=== PATIENT | female | born 1960 | race Caucasian/White ===

== ENCOUNTER → 2018-04-07 08:52 | Outpatient (CLI) | payer OTHER, SELFPAY ==
--- NOTE | 2018-04-07 08:54 | DI.RAD.S_ITS ---
PROCEDURE: XR THORACIC SPINE 3V INDICATIONS: BACK PAIN, ACUTE THORACIC BACK PAIN TECHNIQUE: 3 views of the thoracic spine were acquired. COMPARISON: None. FINDINGS: Bones: No fractures or dislocations. No suspicious bony lesions. 12 pairs of ribs are noted, and appear intact where visualized. Soft tissues: No paravertebral stripe thickening. IMPRESSION: Mild to moderate degenerative disc disease but no fracture or subluxation is found. No spinal or foraminal dose this would be suspected based on the current imaging through the thoracic spine. Dictated by: John Donaldson M.D. on 04/07/2018 at 9:10 Approved by: John Donaldson M.D. on 04/07/2018 at 9:12
== END ==
PROVIDERS: Family Provider Internal Medicine; PCP Internal Medicine; Visit Provider Physician Assistant
DX: M51.34 Other intervertebral disc degeneration, thoracic region (principal)
CPT/HCPCS: 72072

== ENCOUNTER → 2018-04-21 08:16 | Outpatient (CLI) | payer OTHER, SELFPAY ==
--- NOTE | 2018-04-21 | DI.MRI.S_ITS ---
PROCEDURE: MR CERVICAL SPINE WO CON INDICATIONS: CERVICAL PAIN TECHNIQUE: Noncontrast sagittal T1 spin echo and T2 fast spin echo, sagittal STIR, foraminal oblique sagittal T2 fast spin echo, and axial gradient echo or T2 fast spin echo through the cervical spine. COMPARISON: [facility], CR, XR CERVICAL SPINE 2 OR 3 VIEWS, 03/17/2018, 8:29. [facility], MR, C-SPINE WITHOUT CONTRAST, 05/13/2008, 19:37. FINDINGS: Image quality: Excellent. Alignment and Curvature: There is normal bony alignment. Bone Marrow: Marrow demonstrates normal overall signal. Spinal Cord: Visualized spinal cord has normal size and signal. No cerebellar tonsillar herniation. Paraspinous Soft Tissues: No paravertebral masses. Prevertebral soft tissues are normal in thickness. C2-C3: Mild degenerative disc disease with slight disc height reduction and desiccation and a slight posterior disc bulge without spinal or foraminal stenosis, stable over time. C3-C4: Minimal degenerative disc height reduction and desiccation, small posterior midline disc bulge that does not contribute presence of spinal or foraminal stenosis. C4-C5: The degenerative disc disease at this level is moderate to moderately severe, with relatively prominent disc height reduction and broad based transverse disc bulge chronic in appearance, which mildly narrows the anterior thecal sac and slightly flattens the anterior cord. Facet degeneration is greater on the left than the right resulting in mild left and minimal right foraminal stenosis and mild spinal stenosis is also present, with mild interval worsening from 05/13/08. C5-C6: Degenerative disc disease is moderate to moderately severe, and there is a posterior transverse broad-based disc bulge the effaces CSF from the anterior thecal sac and slightly flattens the anterior cord, and there is symmetric mild to moderate foraminal stenosis due to facet hyperostosis. Minimal spinal stenosis as noted. C6-C7: Moderately severe degenerative disc disease with a posterior broad-based transverse disc bulge that is greater on the left than the right and extends into the posterolateral recess and neural foramen resulting in moderately severe to severe left and moderate right foraminal stenosis, likely asymmetrically impinging on the course of the C7 nerve roots. C7-T1: Normal appearance. IMPRESSION: Overall the degenerative disc disease and facet osteoarthritis has only mildly worsened from the comparison study in May of 2008. No disc herniation has developed. There is significant foraminal stenosis, both symmetric and asymmetric, as discussed in detail by level in the body of the report above. Mild spinal stenosis is present, as noted, but only minimally effacing the anterior border of the thecal sac and flattening the anterior cervical cord to a minimal degree from C4-5 through C6-7. Dictated by: John Donaldson M.D. on 04/21/2018 at 11:22 Approved by: John Donaldson M.D. on 04/21/2018 at 11:29
== END ==
PROVIDERS: Family Provider Internal Medicine; PCP Internal Medicine; Visit Provider Orthopaedic Surgery
DX: M54.2 Cervicalgia (principal); M50.30 Other cervical disc degeneration, unspecified cervical region; M48.02 Spinal stenosis, cervical region
CPT/HCPCS: 72141

== ENCOUNTER → 2018-05-08 07:35 | Outpatient (CLI) | payer OTHER, SELFPAY ==
[2018-05-08 07:54] LABS: Add Manual Diff / Slide Review NO; Basophils Percent Auto 1.1 % (0-2); Hematocrit 41.6 % (36-46); Hemoglobin 14.4 g/dL (12.0-16.0); Lymphocytes Percent Auto 23.6 % (25-40); Mean Corpuscular HGB Conc 34.6 % (30-36); Mean Corpuscular Hemoglobin 34.5 PG (26-34); Mean Corpuscular Volume 99.9 fL (80-100); Monocytes Percent Auto 7.6 % (3-14); Neutrophils Absolute Auto 3100 /uL (3000-5900); Neutrophils Percent Auto 66.7 % (50-75); Platelet Count 206 X10^3/uL (150-400); Red Blood Cell Count 4.17 X10^6/uL (4.0-5.2); White Blood Cell Count 4.7 X10^3/uL (4.5-11.0)
[2018-05-08 08:11] LABS: Alanine Aminotransferase 40 IU/L (9-52); Albumin 4.4 g/dL (3.5-5.0); Albumin Globulin Ratio 1.4 (1.0-2.8); Alkaline Phosphatase 100 U/L (38-126); Aspartate Aminotransferase 45 IU/L (14-36); Bilirubin Total 0.5 mg/dL (0.2-1.3); Blood Urea Nitrogen 7 mg/dL (7-17); Calcium 9.6 mg/dL (8.4-10.2); Carbon Dioxide 26 mmol/L (22-32); Chloride 100 mmol/L (98-107); Cholesterol 321 mg/dL (140-199); Estimated Glomerular Filt Rate > 60.0 mL/min (>60); Globulin 3.1 g/dL (1.7-4.1); Glucose 81 mg/dL (70-100); HDL Cholesterol 68 mg/dL (40-60); HEMOLYSIS < 15 (0-50); LDL Cholesterol Calculated 194 mg/dL (<100); Potassium 4.1 mmol/L (3.4-5.1); Sodium 137 mmol/L (137-145); Total Protein 7.5 g/dL (6.3-8.2); Triglycerides 293 mg/dL (35-150)
[2018-05-08 09:28] LABS: Thyroid Stimulating Hormone 2.09 uIU/mL (0.47-4.68)
== END ==
PROVIDERS: PCP Physician Assistant; Visit Provider Physician Assistant
DX: E78.5 Hyperlipidemia, unspecified (principal); E03.9 Hypothyroidism, unspecified; R03.0 Elevated blood-pressure reading, without diagnosis of hypertension
CPT/HCPCS: 36415; 80053; 80061; 84443; 85025

== ENCOUNTER → 2018-08-14 07:30 | Outpatient (CLI) | payer OTHER, SELFPAY ==
[2018-08-14 09:08] LABS: Alanine Aminotransferase 36 IU/L (9-52); Albumin 4.5 g/dL (3.5-5.0); Albumin Globulin Ratio 1.6 (1.0-2.8); Alkaline Phosphatase 84 U/L (38-126); Aspartate Aminotransferase 45 IU/L (14-36); Bilirubin Total 0.6 mg/dL (0.2-1.3); Blood Urea Nitrogen 9 mg/dL (7-17); Calcium 9.6 mg/dL (8.4-10.2); Carbon Dioxide 31 mmol/L (22-32); Chloride 98 mmol/L (98-107); Cholesterol 274 mg/dL (140-199); Estimated Glomerular Filt Rate > 60.0 mL/min (>60); Globulin 2.9 g/dL (1.7-4.1); Glucose 82 mg/dL (80-110); HDL Cholesterol 78 mg/dL (40-60); HEMOLYSIS < 15 (0-50); LDL Cholesterol Calculated 162 mg/dL (<100); Potassium 3.8 mmol/L (3.4-5.1); Sodium 139 mmol/L (137-145); Total Protein 7.4 g/dL (6.3-8.2); Triglycerides 168 mg/dL (35-150)
== END ==
PROVIDERS: Family Provider Internal Medicine; PCP Physician Assistant; Visit Provider Physician Assistant
DX: I10 Essential (primary) hypertension (principal); E78.2 Mixed hyperlipidemia
CPT/HCPCS: 36415; 80053; 80061

== ENCOUNTER → 2019-05-26 07:53 | Outpatient (CLI) | payer OTHER, SELFPAY ==
--- NOTE | 2019-05-26 | DI.MRI.S_ITS ---
PROCEDURE: MR THORACIC SPINE WO CON INDICATIONS: PAIN IN THORACIC SPINE TECHNIQUE: Noncontrast sagittal T1 spine echo and T2 fast spin echo, sagittal STIR, axial T1 and T2 fast spin echo through the thoracic spine. COMPARISON: [facility], , MR CERVICAL SPINE WO CON, 04/21/2018, 8:46. FINDINGS: Image quality: Excellent. Alignment and Curvature: There is grade I T1 on T2 anterolisthesis and T3 on T4 anterolisthesis. Spinal alignment is otherwise normal.. Bone Marrow: Marrow is of normal overall signal. Reactive endplate changes are present at C5-6. No acute vertebral body compression fractures. Spinal Cord: Visualized spinal cord is normal in size and signal. Paraspinous Soft Tissues: No paravertebral masses. Miscellaneous: On axial images, central canal and foramina appear widely patent at all scanned levels. Mild intervertebral disc space narrowing is present within the upper thoracic spine at T1-T7. IMPRESSION: 1. Mild to moderate degenerative changes of the upper thoracic spine. 2. No canal stenosis or neuroforaminal stenosis. No cord signal abnormality. Dictated by: Jeanne Kumar M.D. on 05/26/2019 at 8:40 Approved by: Jeanne Kumar M.D. on 05/26/2019 at 8:44
== END ==
PROVIDERS: PCP Physician Assistant; Visit Provider Physician Assistant
DX: M54.6 Pain in thoracic spine (principal); M47.814 Spondylosis without myelopathy or radiculopathy, thoracic region
CPT/HCPCS: 72146

== ENCOUNTER → 2019-05-28 07:57 | Outpatient (CLI) | payer OTHER, SELFPAY ==
[2019-05-28 08:30] LABS: Add Manual Diff / Slide Review NO; Basophils Absolute Auto 100 /uL (0-100); Basophils Percent Auto 1.2 % (0-2); Eosinophils Absolute Auto 0 /uL (0-450); Eosinophils Percent Auto 0.9 % (2-4); Hematocrit 42.9 % (36-46); Hemoglobin 14.8 g/dL (12.0-16.0); Lymphocytes Absolute Auto 1100 /uL (1100-4500); Lymphocytes Percent Auto 24.5 % (25-40); Mean Corpuscular HGB Conc 34.6 % (30-36); Mean Corpuscular Hemoglobin 35.2 PG (26-34); Mean Corpuscular Volume 101.6 fL (80-100); Monocytes Absolute Auto 400 /uL (0-900); Monocytes Percent Auto 8.8 % (3-14); Neutrophils Absolute Auto 2800 /uL (1500-7000); Neutrophils Percent Auto 64.6 % (50-75); Platelet Count 233 X10^3/uL (150-400); Red Blood Cell Count 4.22 X10^6/uL (4.0-5.2); Red Cell Distribution Width 13.1 % (11.6-14.8); White Blood Cell Count 4.3 X10^3/uL (4.5-11.0)
[2019-05-28 09:02] LABS: Alanine Aminotransferase 38 IU/L (9-52); Albumin 4.7 g/dL (3.5-5.0); Albumin Globulin Ratio 1.7 (1.0-2.8); Alkaline Phosphatase 98 U/L (38-126); Aspartate Aminotransferase 38 IU/L (14-36); BUN Creatinine Ratio 11.7 (6-22); Bilirubin Total 0.7 mg/dL (0.2-1.3); Blood Urea Nitrogen 7 mg/dL (7-17); Calcium 10.3 mg/dL (8.4-10.2); Carbon Dioxide 28 mmol/L (22-32); Chloride 97 mmol/L (98-107); Cholesterol 259 mg/dL (140-199); Estimated Glomerular Filt Rate > 60.0 mL/min (>60); Globulin 2.8 g/dL (1.7-4.1); Glucose 81 mg/dL (80-110); HDL Cholesterol 96 mg/dL (40-60); HEMOLYSIS < 15 (0-50); LDL Cholesterol Calculated 143 mg/dL (<100); Potassium 4.3 mmol/L (3.4-5.1); Rheumatoid Factor 9.6 IU/mL (<12.0); Sodium 136 mmol/L (137-145); Total Protein 7.5 g/dL (6.3-8.2); Triglycerides 99 mg/dL (35-150)
[2019-05-28 09:04] LABS: Erythrocyte Sedimentation Rate 10 MM/HR (0-20)
[2019-05-28 09:10] LABS: C-Reactive Protein Quant < 0.5 mg/dL (<1.0)
[2019-05-30 19:27] LABS: ANA Screen, IFA Negative (Negative)
== END ==
PROVIDERS: PCP Physician Assistant; Visit Provider Physician Assistant
DX: M54.6 Pain in thoracic spine (principal); E78.5 Hyperlipidemia, unspecified; E03.9 Hypothyroidism, unspecified; R03.0 Elevated blood-pressure reading, without diagnosis of hypertension
CPT/HCPCS: 36415; 80053; 80061; 84443; 85025; 85651; 86038; 86140; 86430

== ENCOUNTER → 2019-06-03 08:09 | Outpatient (CLI) | payer OTHER, SELFPAY ==
[2019-06-03 09:23] LABS: BUN Creatinine Ratio 13.3 (6-22); Blood Urea Nitrogen 8 mg/dL (7-17); Calcium 10.2 mg/dL (8.4-10.2); Carbon Dioxide 28 mmol/L (22-32); Chloride 95 mmol/L (98-107); Estimated Glomerular Filt Rate > 60.0 mL/min (>60); Glucose 85 mg/dL (80-110); HEMOLYSIS < 15 (0-50); Potassium 4.3 mmol/L (3.4-5.1); Sodium 134 mmol/L (137-145)
[2019-06-05 14:27] LABS: Parathyroid Hormone Int 37 pg/mL (14-64)
== END ==
PROVIDERS: PCP Physician Assistant; Visit Provider Physician Assistant
DX: E83.52 Hypercalcemia (principal)
CPT/HCPCS: 36415; 80048; 83970

== ENCOUNTER 2019-08-12 07:29 | Outpatient (CLI) | payer OTHER, SELFPAY ==
--- NOTE | 2019-08-12 07:31 | DI.RAD.S_ITS ---
PROCEDURE: PAIN C/T INTERLAMINAR INJECT INDICATIONS: RADICULOPATHY FINDINGS: Fluoroscopic spot filming was performed to verify placement of spinal needles at the C6-C7 posterior midline level(s), as labeled on the films. Appropriate location(s) of the needle tip(s) was confirmed by injection of iodinated contrast. IMPRESSION: Epidural injection at C6-7 at the dorsal midline appears present, expected needle tip localization. Dictated by: John Donaldson M.D. on 08/12/2019 at 13:24 Approved by: John Donaldson M.D. on 08/12/2019 at 13:25
[2019-08-12 07:49] VITALS: BP 163/95; PULSE 83; RESP 16; TEMP 36.5; O2SAT 100
[2019-08-12 08:26] VITALS: BP 162/97; PULSE 86; RESP 15; O2SAT 99
[2019-08-12] MEDS: fentaNYL 100 MCG/2 ML INJ 50 MCG IV (08:29)
[2019-08-12] MEDS: MIDAZOLAM 5 MG/5 ML VIAL IV (08:29)
[2019-08-12] MEDS: DEXAMETHASONE 10 MG/ML VIAL 30 MG INJ (08:40)
[2019-08-12] MEDS: LIDOCAINE 1% 20 ML 5 ML INJ (08:40)
[2019-08-12] MEDS: IOPAMIDOL 15 ML VIAL 3 ML INJ (08:40)
--- NOTE | 2019-08-12 08:45 | P.PCN_ITS ---
Procedures Date/Time Date of procedure: 08/12/19 Time of procedure: 08:45 General Procedure description: PREOP DIAGNOSIS 1. CERVICAL STENOSIS, 2. CERVICAL HNP WITH UPPER EXTREMITY RADICULAR FEATURES, POST OP DIAGNOSIS 1. CERVICAL STENOSIS, 2. CERVICAL HNP WITH UPPER EXTREMITY RADICULAR FEATURES, PROCEDURES 1. FLUORSCOPICALLY GUIDED CONTRAST CONTROLLED INTERLAMINAR EPIDURAL STEROID INJECTION - C6/7 TL TERRI PHYSICIAN: Martin Pérez DO INDICATIONS Tressa is referred by [facility] for treatment of Cervical HNP with Upper Extremity Paresthesias. FINDINGS Cervical Stenosis due to disc deterioration and nerve root irritation and nerve root irritation DESCRIPTION OF PROCEDURE Fluoroscopically guided, contrast-controlled C6/7 translaminar epidural steroid injection with conscious sedation. Following review of allergy and review of potential side effects and complications, including, but not necessarily limited to, infection, allergic reaction, local tissue breakdown, temporary as well as permanent nerve injury, stroke, paralysis, and possible , the patient indicated that patient understood and agreed to proceed. An informed consent document was signed by the patient, witnessed by a nurse, and placed in the patient's chart. Additionally, other treatment options including modalities, medications, and physical therapy were reviewed with the patient. After review of previous anaesthesic history and IV conscious sedation the patient was deemed safe to proceed with todays procedure with IV conscious sedation as ASA class II designation. Safety time-out was performed to confirm patient ID, procedure to be performed and site of procedure. IV sedation was accomplished with a combination of 2mg of Versed and 50mcg of Fentanyl administered by the RN after DO order, titrated to patient comfort during the course of the procedure while the patient remained responsive to all verbal commands. In the prone position, following sterile prep and drape of the cervical region, the C6/7 translaminar space was identified fluoroscopically. The skin was anesthetized via a 25-gauge 1.5-inch needle with 1% lidocaine solution. At this point, a 25-gauge, 2.5-inch short bevel spinal needle was atraumatically i ntroduced and advanced under fluoroscopic guidance into epidural space at the C6/7 translaminar space. Depth was confirmed on lateral view. Radiological data, including multiple fluoroscopic views of the cervical spine, reveal a spinal needle at the C6/7 translaminar space. Lateral views then show placement of the needle in the epidural space. Subsequent views show contrast material flowing superiorly and inferiorly in the epidural space. DSA fluoroscopy with live contrast injection, once again, confirmed no vascular or intrathecal uptake. At this point, using loss of resistance technique with saline and air, the epidural space was entered. Following negative aspiration, injection of approximately 1.5 cc of Isovue-200 with live fluoroscopy in the AP view confirmed epidural flow in the epidural space without vascular or intrathecal uptake observed. Subsequently, a test dose of 1 cc of 1% lidocaine solution was injected and patient was observed for two minutes without signs or symptoms of complications, including abdominal pain, shortness of breath, bilateral upper or lower extremity weakness, nausea and vomiting, prior to steroid injection. At this point, 2cc or 20mg of dexamethasone was then injected without incident. The patient tolerated the procedure well without signs or symptoms of complications prior to being transferred to the recovery area for further jerome toring, The patient was then transferred to the recovery area where they were observed for an appropriate period of time after the injection. The patient reported a VAS score of 6 prior to the procedure and a post-procedure VAS of 0. Total Fluoroscopy Time: 37.0 seconds Total Conscious Time: 24min POST OP INSTRUCTIONS The patient was provided a Pain Log to continue to record their response to the target-specific procedure prior to follow-up visit with the referring provider. Additionally, specific post-injection care instructions and a contact number to our office were provided if concerns arise regarding possible complications associated with the procedure are suspected. Martin Pérez DO Complications: none
[2019-08-12 08:50] VITALS: BP 148/92; PULSE 84; RESP 16; O2SAT 100
--- NOTE | 2019-08-12 08:53 | PC.NURSE ---
post transfer note: VSS throughout procedure. O2 sat WNL on 2 L/[employer]. Pai8n level 11/12 post procedure. Denied any numbness or tingling. Transfered to / without difficulties. Transported to post procedure monitoring. Report given to Belinda Allred RN. Friend at chairside.
[2019-08-12 08:54] VITALS: BP 136/94; PULSE 82; RESP 16; O2SAT 99
[2019-08-12 08:59] VITALS: BP 148/83; PULSE 81; RESP 16; O2SAT 99
== END 2019-08-12 09:15 | disposition home or self-care (01) ==
LOC: RAD 07:31
PROVIDERS: PCP Physician Assistant; Visit Provider Physical Medicine & Rehabilitation
DX: M48.02 Spinal stenosis, cervical region (principal); M50.123 Cervical disc disorder at C6-C7 level with radiculopathy; R20.2 Paresthesia of skin
CPT/HCPCS: 62321; 99152; J1100; J2250; J3010

== ENCOUNTER 2019-10-07 07:33 | Outpatient (CLI) | payer OTHER, SELFPAY ==
[2019-10-07] VITALS (8 sets, daily range): BP systolic 133–175; BP diastolic 71–118; PULSE 76–89; RESP 14–16; O2SAT 99–100
--- NOTE | 2019-10-07 07:34 | DI.RAD.S_ITS ---
PROCEDURE: PAIN C/T INTERLAMINAR INJECT INDICATIONS: THORACIC PAIN FINDINGS: Fluoroscopic spot filming was performed to verify placement of spinal needles at the mid thoracic level at approximately the junction of the upper and middle thirds level(s), as labeled on the films. Appropriate location(s) of the needle tip(s) was confirmed by injection of iodinated contrast. IMPRESSION: Successful needle tip localization at approximately the junction of the upper and middle thirds of the thoracic spine for dorsal epidural steroid injection. Dictated by: John Donaldson M.D. on 10/07/2019 at 10:21 Approved by: John Donaldson M.D. on 10/07/2019 at 10:38
[2019-10-07] MEDS: fentaNYL 100 MCG/2 ML INJ 50 MCG IV (08:40)
[2019-10-07] MEDS: MIDAZOLAM 5 MG/5 ML VIAL IV (08:40)
--- NOTE | 2019-10-07 08:55 | P.PCN_ITS ---
Procedures Date/Time Date of procedure: 10/07/19 Time of procedure: 08:55 General Procedure description: Preop diagnosis: Thoracic stenosis with HNP Postprocedure diagnosis: Thoracic stenosis with HNP Physician: Martin Pérez D.O. Indications: Tressa is referred by [facility] for treatment of thoracic DDD/DJD with radiculopathy Description of procedure: Fluoroscopic guided, contrast controlled T3/4 translaminar epidural steroid in jection with conscious sedation. Following review of allergy review potential side effects and complications, including, but not necessarily limited to, infection, allergic reaction, local tissue breakdown, temporary as well as permanent nerve injury, stroke, paralysis and possible , the patient indicated that they understood and agreed to proceed. An informed consent document was signed by the patient, witnessed by the nurse, and placed in the patient's chart. Additionally other treatment options including modalities, medications and physical therapy were reviewed with the patient. After review of previous anaesthesic history and IV conscious sedation the patient was deemed safe to proceed with todays procedure with IV conscious sedation as ASA class II designation. Safety time-out was performed to confirm patient ID, procedure to be performed and site of procedure. IV sedation was accomplished with a combination of 3mg of Versed and 50mcg of Fentanyl administered by the RN after DO order, titrated to patient comfort during the course of the procedure while the patient remained responsive to all verbal commands In the prone position, following sterile prep and drape of the thoracic region the T3/4 translaminar space was identified fluoroscopically. The skin was anesthetized via 25 gauge 20 mm sheath with 1% lidocaine solution. At this point a 20 gauge epidural needle was atraumatically introduced and advanced under fluoroscopic guidance into the region of the T3/4 translaminar space depth was confirmed on lateral view. Radiographic data, including multiple fluoroscopic views of the thoracic spine, reveals spinal needle at the T8-9 translaminar space. Lateral views then showed the placement of the needle in the epidural space. Subsequent view show contras t material flowing superiorly and inferiorly in the epidural space. No vascular or intrathecal uptake is observed. At this point using loss of resistance technique with saline and the epidural space was entered. This was confirmed followed negative aspiration and injection of approximately 1.5 cc of Isovue 200 showed excellent epidural flow without vascular or intrathecal uptake. At this point, 1 cc of 1% lidocaine solution was admitted as a test dose and the patient was observed for an appropriate period of time without signs or symptoms of complications, including abdominal pain, shortness of breath, bilateral upper and lower extremity weakness, nausea and vomiting, prior to steroid injection. Subsequently, 3cc or 30mg of dexamethasone was then injected without incident. The patient tolerated the procedure well without signs of complications and subsequently was transferred to the recovery room for further monitoring. The patient was then transferred to the recovery area with their observed for an appropriate time after the injection. Patient reported a VAS score of 7 prior to the procedure and postprocedure VAS of 2. Total fluoroscopy time: 56.3 sec Total conscious sedation time: 24 min Martin Pérez D.O. Complications: none
[2019-10-07] MEDS: IOPAMIDOL 15 ML VIAL 3 ML INJ (09:02)
[2019-10-07] MEDS: LIDOCAINE 1% 20 ML 5 ML INJ (09:02)
[2019-10-07] MEDS: DEXAMETHASONE 10 MG/ML VIAL 30 MG INJ (09:02)
--- NOTE | 2019-10-07 09:08 | PC.NURSE ---
Post procedure transfer note: Time out at 0837. Patient medicated per providers orders. Patient tolerated procedure well. VSS and O2 Sat stable throughout. Able to sit up and transfer to w/c without any difficulties. Handoff report given to Belinda Allred. Patient transferred with stand by assist to recliner at 0857.
--- NOTE | 2019-10-07 09:26 | PC.NURSE ---
ACCEPTED CARE OF PT IN POST PROC AREA IN STABLE CONDITION.
== END 2019-10-07 09:29 | disposition home or self-care (01) ==
LOC: RAD 07:33
PROVIDERS: PCP Physician Assistant; Visit Provider Physical Medicine & Rehabilitation
DX: M51.14 Intervertebral disc disorders with radiculopathy, thoracic region (principal); M47.24 Other spondylosis with radiculopathy, thoracic region
CPT/HCPCS: 62321; 99152; J1100; J2250; J3010

== ENCOUNTER → 2020-01-07 07:27 | Outpatient (CLI) | payer OTHER, SELFPAY ==
[2020-01-07 08:21] LABS: Add Manual Diff / Slide Review NO; Basophils Absolute Auto 0 /uL (0-100); Eosinophils Absolute Auto 0 /uL (0-450); Eosinophils Percent Auto 1.1 % (2-4); Hemoglobin 14.2 g/dL (12.0-16.0); Lymphocytes Absolute Auto 1300 /uL (1100-4500); Lymphocytes Percent Auto 30.5 % (25-40); Mean Corpuscular HGB Conc 34.7 % (30-36); Mean Corpuscular Hemoglobin 34.7 PG (26-34); Mean Corpuscular Volume 100.1 fL (80-100); Monocytes Absolute Auto 400 /uL (0-900); Monocytes Percent Auto 9.9 % (3-14); Neutrophils Absolute Auto 2500 /uL (1500-7000); Neutrophils Percent Auto 57.5 % (50-75); Platelet Count 220 X10^3/uL (150-400); Red Cell Distribution Width 12.9 % (11.6-14.8); White Blood Cell Count 4.3 X10^3/uL (4.5-11.0)
[2020-01-07 08:56] LABS: Alanine Aminotransferase 24 IU/L (<35); Albumin 4.7 g/dL (3.5-5.0); Albumin Globulin Ratio 1.6 (1.0-2.8); Alkaline Phosphatase 92 U/L (38-126); Aspartate Aminotransferase 40 IU/L (14-36); Bilirubin Total 0.7 mg/dL (0.2-1.3); Blood Urea Nitrogen 9 mg/dL (7-17); Carbon Dioxide 28 mmol/L (22-32); Chloride 97 mmol/L (98-107); Cholesterol 285 mg/dL (140-199); Estimated Glomerular Filt Rate > 60.0 mL/min (>60); Globulin 2.9 g/dL (1.7-4.1); Glucose 85 mg/dL (80-110); HDL Cholesterol 84 mg/dL (40-60); HEMOLYSIS < 15 (0-50); LDL Cholesterol Calculated 174 mg/dL (<100); Potassium 4.3 mmol/L (3.4-5.1); Sodium 133 mmol/L (137-145); Total Protein 7.6 g/dL (6.3-8.2); Triglycerides 134 mg/dL (35-150)
[2020-01-07 09:05] LABS: Vitamin D 25 Hydroxy (D3) 46.1 ng/mL (30.0-100.0)
[2020-01-07 09:18] LABS: TSH w/ Reflex to FT4 3.06 uIU/mL (0.47-4.68)
[2020-01-11 15:37] LABS: Parathyroid Hormone Int 21 pg/mL (14-64)
== END ==
PROVIDERS: PCP Physician Assistant; Referring Provider Physician Assistant; Visit Provider Physician Assistant
DX: I10 Essential (primary) hypertension (principal); E78.5 Hyperlipidemia, unspecified; E83.52 Hypercalcemia; E03.9 Hypothyroidism, unspecified
CPT/HCPCS: 36415; 80053; 80061; 82306; 83970; 84443; 85025

== ENCOUNTER → 2020-05-22 08:41 | Outpatient (CLI) | payer OTHER, SELFPAY ==
--- NOTE | 2020-05-22 | DI.MRI.S_ITS ---
PROCEDURE: MR THORACIC SPINE WO CON INDICATIONS: Pain in thoracic spine TECHNIQUE: Noncontrast sagittal T1 spine echo and T2 fast spin echo, sagittal STIR, axial T1 and T2 fast spin echo through the thoracic spine. COMPARISON: [facility], , MR THORACIC SPINE WO CON, 05/26/2019, 7:58. FINDINGS: Image quality: Excellent. Alignment and Curvature: There is grade 1 T2 on T3, T3 on T4, and T4 on T5 anterolisthesis, the extent of which is unchanged from the study dated May 26, 2019. Spinal alignment is otherwise normal. Bone Marrow: Marrow is of normal overall signal. No acute vertebral body compression fractures. Modic type II changes are present at T6-7 and Modic type I changes are present at T7-8 and T9-10. Findings are similar in extent to the prior study. Spinal Cord: Visualized spinal cord is normal in size and signal. Paraspinous Soft Tissues: No paravertebral masses. Miscellaneous: Neural foramina are widely patent throughout the thoracic spine. No canal stenosis. There is multilevel moderate disc desiccation and height loss throughout the mid thoracic spine. IMPRESSION: 1. Degenerative changes of the thoracic spine overall similar in extent to the study dated May 26, 2019. Multilevel reactive endplate changes are present as before. 2. Diffuse disc desiccation and height loss within the mid cervical spine consistent with degenerative changes. 3. No acute compression deformities or acute marrow edema to suggest fracture. Dictated by: Jeanne Kumar M.D. on 05/22/2020 at 11:12 Approved by: Jeanne Kumar M.D. on 05/22/2020 at 11:37
== END ==
PROVIDERS: PCP Physician Assistant; Referring Provider Physician Assistant; Visit Provider Neurological Surgery
DX: M54.6 Pain in thoracic spine (principal); M47.814 Spondylosis without myelopathy or radiculopathy, thoracic region
CPT/HCPCS: 72146

== ENCOUNTER → 2020-06-19 08:11 | Outpatient (CLI) | payer OTHER, SELFPAY ==
[2020-06-19 09:30] LABS: Alanine Aminotransferase 27 IU/L (<35); Albumin 4.5 g/dL (3.5-5.0); Albumin Globulin Ratio 1.6 (1.0-2.8); Alkaline Phosphatase 89 U/L (38-126); Aspartate Aminotransferase 45 IU/L (14-36); BUN Creatinine Ratio 20.4 (6-22); Bilirubin Total 0.5 mg/dL (0.2-1.3); Blood Urea Nitrogen 11 mg/dL (7-17); Calcium 9.7 mg/dL (8.4-10.2); Carbon Dioxide 27 mmol/L (22-32); Chloride 98 mmol/L (98-107); Cholesterol 285 mg/dL (140-199); Estimated Glomerular Filt Rate > 60.0 mL/min (>60); Globulin 2.9 g/dL (1.7-4.1); Glucose 87 mg/dL (80-110); HDL Cholesterol 69 mg/dL (40-60); HEMOLYSIS < 15 (0-50); Potassium 4.5 mmol/L (3.4-5.1); Sodium 132 mmol/L (137-145); Total Protein 7.4 g/dL (6.3-8.2)
[2020-06-19 09:40] LABS: Triglycerides 751 mg/dL (35-150)
[2020-06-19 10:00] LABS: TSH w/ Reflex to FT4 0.48 uIU/mL (0.47-4.68)
== END ==
PROVIDERS: PCP Physician Assistant; Referring Provider Physician Assistant; Visit Provider Physician Assistant
DX: E78.2 Mixed hyperlipidemia (principal); E03.9 Hypothyroidism, unspecified; E55.9 Vitamin D deficiency, unspecified; I10 Essential (primary) hypertension
CPT/HCPCS: 36415; 80053; 80061; 82306; 84443

== ENCOUNTER → 2020-09-08 08:32 | Outpatient (CLI) | payer OTHER, SELFPAY ==
--- NOTE | 2020-09-08 | DI.RAD.S_ITS ---
PROCEDURE: XR THORACIC SPINE 3V INDICATIONS: PAIN IN THORACIC SPINE TECHNIQUE: 3 views of the thoracic spine were acquired. COMPARISON: [facility], MR, MR THORACIC SPINE WO CON, 05/22/2020, 9:07. [facility], CR, XR THORACIC SPINE 3V, 04/07/2018, 8:55. FINDINGS: Bones: No fractures or dislocations. No suspicious bony lesions. 12 pairs of ribs are noted, and appear intact where visualized. There is moderate degenerative disc disease in thoracic spine. Soft tissues: No paravertebral stripe thickening. IMPRESSION: Moderate degenerative disc disease in thoracic spine. Dictated by: Damian Foreman M.D. on 09/08/2020 at 9:31 Approved by: Damian Foreman M.D. on 09/08/2020 at 9:33
== END ==
PROVIDERS: PCP Physician Assistant; Referring Provider Physician Assistant; Visit Provider Physician Assistant
DX: M51.34 Other intervertebral disc degeneration, thoracic region (principal)
CPT/HCPCS: 72072

== ENCOUNTER → 2020-10-10 09:15 | Outpatient (CLI) | payer OTHER, SELFPAY ==
[2020-10-10 11:50] LABS: COVID19 -Nasal RAPID Negative (Negative)
== END ==
PROVIDERS: PCP Physician Assistant; Visit Provider Physical Medicine & Rehabilitation
DX: Z01.812 Encounter for preprocedural laboratory examination (principal); Z20.828 Contact with and (suspected) exposure to other viral communicable diseases
CPT/HCPCS: 87635; C9803

== ENCOUNTER 2020-10-12 08:50 | Outpatient (CLI) | payer OTHER, SELFPAY ==
[2020-10-12] VITALS (8 sets, daily range): BP systolic 130–142; BP diastolic 83–100; PULSE 75–90; RESP 14–23; TEMP 36.2; O2SAT 98–100
--- NOTE | 2020-10-12 08:51 | DI.RAD.S_ITS ---
PROCEDURE: PAIN C/T INTERLAMINAR INJECT INDICATIONS: SPONDYLOSIS COMPARISON: [facility], , PAIN C/T INTERLAMINAR INJECT, 10/07/2019, 8:42. FINDINGS: Fluoroscopic spot filming was performed to verify placement of spinal needles at the T8-T9 level(s), as labeled on the films. Appropriate location(s) of the needle tip(s) was confirmed by injection of iodinated contrast. Dictated by: Aren Jane M.D. on 10/13/2020 at 9:46 Approved by: Aren Jane M.D. on 10/13/2020 at 9:47
[2020-10-12] MEDS: MIDAZOLAM 5 MG/5 ML VIAL IV (09:49)
[2020-10-12] MEDS: fentaNYL 100 MCG/2 ML INJ 50 MCG IV (09:49)
[2020-10-12] MEDS: IOPAMIDOL 15 ML VIAL 3 ML INJ (09:51)
[2020-10-12] MEDS: DEXAMETHASONE 10 MG/ML VIAL 30 MG INJ (09:52)
[2020-10-12] MEDS: BUPIVACAINE 0.25% (PF) VIAL 2 ML INJ (09:52)
--- NOTE | 2020-10-12 10:01 | P.PCN_ITS ---
Date/Time/Diagnoses Date of procedure: 10/12/20 Time of procedure: 10:01 Pre-procedure diagnosis: Thoracic stenosis with HNP Post-procedure diagnosis: same Procedure Notes Procedure: Fluoroscopic guided, contrast controlled T8-9 translaminar epidural steroid injection with conscious sedation. Indications: Tressa is referred by [facility] for treatment of thoracic DDD/DJD with radiculopathy Physician: Martin Pérez Total Fluoroscopy time (seconds): 13 Total sedation minutes: 10 Complications: none Procedure in detail & Post-procedure care: DESCRIPTION OF PROCEDURE Fluoroscopic guided, contrast controlled T8-9 translaminar epidural steroid injection with conscious sedation. Following review of allergy review potential side effects and complications, including, but not necessarily limited to, infection, allergic reaction, local tissue breakdown, temporary as well as permanent nerve injury, stroke, paralysis and possible , the patient indicated that they understood and agreed to proceed. An informed consent document was signed by the patient, witnessed by the nurse, and placed in the patient's chart. Additionally other treatment options including modalities, medications and physical therapy were reviewed with the patient. After review of previous anaesthesic history and IV conscious sedation the patient was deemed safe to proceed with today's procedure with IV conscious sedation as ASA class II designation. Safety time-out was performed to confirm patient ID, procedure to be performed and site of procedure. IV sedation was accomplished with a combination of 2mg of Versed and 50mcg of Fentanyl administered by the RN after DO order, titrated to patient comfort during the course of the procedure while the patient remained responsive to all verbal commands In the prone position, following sterile prep and drape of the thoracic region the T8-9 translaminar space was identified fluoroscopically. The skin was anesthetized via 25 gauge 1.5inch needle with 1% lidocaine solution. At this point a 22gauge epidural needle was atraumatically introduced and advanced under fluoroscopic guidance into the region of the T8-9 translaminar space depth was confirmed on lateral view. Radiographic data, including multiple fluoroscopic views of the thoracic spine, reveals spinal needle at the T8-9 translaminar space. Lateral views then showed the placement of the needle in the epidural space. Subsequent view show contrast material flowing superiorly and inferiorly in the epidural space. No vascular or intrathecal uptake is observed. At this point using loss of resistance technique with saline and the epidural space was entered. This was confirmed followed negative aspiration and injection of approximately 1.5cc of Isovue 200 showed excellent epidural flow without vascular or intrathecal uptake. At this point, 1 cc of 1% lidocaine solution was admitted as a test dose and the patient was observed for an appropriate period of time without signs or symptoms of complications, including abdominal pain, shortness of breath, bilateral upper and lower extremity weakness, nausea and vomiting, prior to steroid injection. Subsequently, 2cc or 20mg of dexamethasone was then injected without incident. The patient tolerated the procedure well without signs of complications and subsequently was transferred to the recovery room for further monitoring. The patient was then transferred to the recovery area with their observed for an appropriate time after the injection. Patient reported a VAS score of 7 prior to the procedure and post-procedure VAS of 2.
== END 2020-10-12 10:30 | disposition home or self-care (01) ==
LOC: RAD 08:50
PROVIDERS: PCP Physician Assistant; Referring Provider Physician Assistant; Visit Provider Physical Medicine & Rehabilitation
DX: M48.04 Spinal stenosis, thoracic region (principal); M51.14 Intervertebral disc disorders with radiculopathy, thoracic region; M47.24 Other spondylosis with radiculopathy, thoracic region
CPT/HCPCS: 62321; 99152; J1100; J2250; J3010

== ENCOUNTER → 2021-05-16 08:08 | Outpatient (CLI) | payer OTHER, SELFPAY ==
[2021-05-16 09:33] LABS: Add Manual Diff / Slide Review NO; Basophils Absolute Auto 0 /uL (0-100); Eosinophils Absolute Auto 0 /uL (0-450); Eosinophils Percent Auto 0.8 % (2-4); Hematocrit 41.3 % (36-46); Hemoglobin 14.2 g/dL (12.0-16.0); Lymphocytes Absolute Auto 1200 /uL (1100-4500); Lymphocytes Percent Auto 27.5 % (25-40); Mean Corpuscular HGB Conc 34.4 % (30-36); Mean Corpuscular Hemoglobin 35.2 PG (26-34); Mean Corpuscular Volume 102.3 fL (80-100); Monocytes Absolute Auto 400 /uL (0-900); Monocytes Percent Auto 9.5 % (3-14); Neutrophils Absolute Auto 2600 /uL (1500-7000); Neutrophils Percent Auto 61.2 % (50-75); Platelet Count 217 X10^3/uL (150-400); Red Blood Cell Count 4.04 X10^6/uL (4.0-5.2); White Blood Cell Count 4.3 X10^3/uL (4.5-11.0)
[2021-05-16 10:15] LABS: Alanine Aminotransferase 35 IU/L (<35); Albumin 4.6 g/dL (3.5-5.0); Albumin Globulin Ratio 1.6 (1.0-2.8); Alkaline Phosphatase 101 U/L (38-126); Aspartate Aminotransferase 61 IU/L (14-36); BUN Creatinine Ratio 13.3 (6-22); Bilirubin Total 0.7 mg/dL (0.2-1.3); Blood Urea Nitrogen 6 mg/dL (7-17); Carbon Dioxide 27 mmol/L (22-32); Chloride 99 mmol/L (98-107); Cholesterol 271 mg/dL (140-199); Estimated Glomerular Filt Rate > 60.0 mL/min (>60); Globulin 2.9 g/dL (1.7-4.1); Glucose 85 mg/dL (80-110); HDL Cholesterol 89 mg/dL (40-60); HEMOLYSIS < 15 (0-50); LDL Cholesterol Calculated 152 mg/dL (<100); Sodium 134 mmol/L (137-145); Total Protein 7.5 g/dL (6.3-8.2); Triglycerides 148 mg/dL (35-150)
[2021-05-16 10:35] LABS: Vitamin D 25 Hydroxy (D3) 42.5 ng/mL (30.0-100.0)
[2021-05-16 10:50] LABS: TSH w/ Reflex to FT4 1.31 uIU/mL (0.47-4.68)
[2021-05-17 11:59] LABS: Parathyroid Hormone Int 54 pg/mL (15-65)
== END ==
PROVIDERS: PCP Physician Assistant; Referring Provider Physician Assistant; Visit Provider Physician Assistant
DX: M54.6 Pain in thoracic spine (principal); M50.320 Other cervical disc degeneration, mid-cervical region, unspecified level; E78.2 Mixed hyperlipidemia; E03.9 Hypothyroidism, unspecified; E55.9 Vitamin D deficiency, unspecified; E83.52 Hypercalcemia
CPT/HCPCS: 36415; 80053; 80061; 82306; 83970; 84443; 85025

== ENCOUNTER 2021-09-04 09:05 | Observation (INO) | payer OTHER, SELFPAY ==
[2021-09-04] VITALS (17 sets, daily range): BP systolic 109–129; BP diastolic 66–87; PULSE 71–103; RESP 14–23; TEMP 36.3–37; O2SAT 94–100; BMI 20.9; BMI 21.3
--- NOTE | 2021-09-04 09:21 | ED.NEUROSD ---
HPI - Neuro Symptoms/Deficit General Chief Complaint: Neuro Symptoms/Deficit Stated Complaint: Dizzy, hallucinating, slurred speech, headache Time Seen by Provider: 09/04/21 09:09 Source: patient and other Mode of arrival: Ambulatory Limitations: no limitations and altered mental status History of Present Illness HPI Narrative: 61-year-old female daily smoker with a history of hypertension presents with her neighbor and family friend and a chief complaint of various neurologic complaints over the past week or so. She had been complaining of a right-sided headache and was seen and evaluated by her primary care provider about a week ago and due to the suspicion of possible temporal arteritis she was put on a course of steroids. She states that the prednisone made her feel incredibly thirsty and she's been drinking large amounts of water. Over the past week her friends and family have noted that she has been confused, perhaps hallucinating, having trouble with ambulation and slurring her words. She denies any ongoing headache but states she still feels a bit dizzy. She currently is not having any blurred vision or trouble finding words. She has had no fever or chills, she denies any neck pain. She has had no trauma or even mild head injuries. Other than the course of steroid she has had no change in her medications and denies any dietary change. She has had no recent travel. On Anticoagulants: No Related Data Home Medications Medication Instructions Recorded Confirmed levothyroxine 150 mcg tablet 150 mcg PO DAILY 04/06/18 11/10/20 acyclovir 400 mg tablet 400 mg PO BID 06/21/19 11/10/20 pravastatin 80 mg tablet 80 mg PO DAILY 09/20/20 11/10/20 amlodipine 2.5 mg tablet mg PO DAILY tab 11/10/20 11/10/20 duloxetine 30 mg capsule,delayed mg PO DAILY cap 11/10/20 11/10/20 release Previous Rx's Medication Instructions Recorded hydrocodone 5 mg-acetaminophen 325 1 tab PO Q4-6H PRN #20 tab 04/06/18 mg tablet methocarbamol 500 mg tablet 500 mg PO BEDTIME #14 tab 10/21/19 lidocaine 5 % topical ointment See Rx Instructions .ROUTE 08/25/20 .COMPLEX #35.44 gram Allergies Allergy/AdvReac Type Severity Reaction Status Date / Time hydroxyzine Allergy Severe Shakiness Verified 09/04/21 09:14 Penicillins [PENICILLINS] Allergy Mild RASH Verified 09/04/21 09:14 epinephrine [EPINEPHRINE] AdvReac Mild Verified 09/04/21 09:14 Review of Systems Review of Systems Narrative: GENERAL: Denies chills, fatigue, malaise, fever, sweats. HEENT: Denies sinus pain, ear pain, sore throat, difficulty swallowing, dizziness. RESPIRATORY: Denies dyspnea, cough, wheezing, hemoptysis, sputum. CARDIOVASCULAR: Denies chest pain, palpitations, orthopnea, edema, GASTROINTESTINAL: Denies nausea, vomiting, abdominal pain, diarrhea, constipation, melena. : Denies dysuria, frequency, incontinence, hematuria, urinary retention. 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 Well-developed patient, in mild distress. Some pressured speech, flat affect HEAD: Atraumatic. Normocephalic. EYES: Pupils equal round and reactive. Extraocular motions intact. No scleral icterus. No injection or drainage. ENT: Moist mucous membranes. Nose without bleeding, purulent drainage. Throat without erythema, tonsillar hypertrophy or exudate. Airway patent. NECK: Trachea midline. Non tender CARDIOVASCULAR: Regular rate and rhythm without murmurs, gallops, or rubs. RESPIRATORY: Clear to auscultation. Breath sounds equal bilaterally. No wheezes, rales, or rhonchi. GASTROINTESTINAL: Abdomen soft, non-tender, nondistended. EXTREMITIES: No edema or joint tenderness. BACK: Nontender without deformity or crepitance. No flank tenderness. NEURO: AOx3. SKIN: Appropriate skin turgor. No rash or erythema of visible areas NIH Stroke Scale 1a. LOC: Patient is alert and keenly responsive (0) 1b. LOC Questions: Patient answers both LOC questions accurately (0) 1c. LOC Commands: Patient performs both tasks correctly (0) 2. Best Gaze: Normal (0) 3. Visual: No visual loss (0) 4. Facial palsy: Normal symmetrical movements (0) 5. Motor arm: No drift (0) 6. Motor leg: No drift (0) 7. Limb ataxia: Absent (0) 8. Sensory: Normal (0) 9. Best language: No aphasia; normal (0) 10. Dysarthria: Normal (0) 11. Extinction and inattention: No abnormality (0) NIHSS: 0 Initial Vital Signs Initial Vital Signs: Vital Signs Temperature 97.5 F L 09/04/21 09:09 Pulse Rate 89 09/04/21 09:09 Respiratory Rate 14 09/04/21 09:09 Blood Pressure 129/87 09/04/21 09:09 Pulse Oximetry 98 09/04/21 09:09 Course Orders Ordered: ED Orders 09/04/21 09:20 Complete Blood Count AUTO DIFF Stat Comprehensive Metabolic Panel Stat Troponin & CK Cardiac Panel Stat 09/04/21 09:22 EKG-12 Lead Stat 09/04/21 09:32 CT head/brain wo con Stat 09/04/21 09:57 TSH w/ Reflex to FT4 Stat 09/04/21 10:00 Urine Drug Screen, Rapid Stat 09/04/21 10:04 COVID19 - ADMIT ([employer] swab/PCR) Stat Sodium Chloride (Normal Saline 0.9%) 1,000 mls @ 150 mls/hr IV CONT PARAG Last Admin: 09/04/21 10:02 Dose: 150 mls/hr Documented by: PALE Vital Signs Vital signs: Vital Signs - 8 hr 09/04/21 09:09 09/04/21 09:11 09/04/21 09:13 Temperature 97.5 F L Pulse Rate 89 89 Respiratory Rate 14 Blood Pressure 129/87 129/87 Pulse Oximetry 98 98 98 09/04/21 09:33 09/04/21 10:00 09/04/21 10:30 Temperature Pulse Rate 84 79 77 Respiratory Rate 16 23 18 Blood Pressure 115/75 117/75 Pulse Oximetry 98 99 100 09/04/21 11:00 09/04/21 11:15 09/04/21 11:30 Temperature Pulse Rate 74 75 76 Respiratory Rate 17 18 19 Blood Pressure 117/74 111/74 109/71 Pulse Oximetry 100 99 96 09/04/21 12:00 09/04/21 12:30 Temperature Pulse Rate 81 74 Respiratory Rate 21 16 Blood Pressure 118/69 109/73 Pulse Oximetry 96 96 MDM - Neuro Symptoms/Deficit Lab Data Result diagrams: 09/04/21 09:20 09/04/21 09:20 Labs: Lab Results 09/04/21 09/04/21 09/04/21 Range/Units 09:20 09:20 09:57 WBC 6.3 (4.5-11.0) X10^3/uL RBC 3.89 L (4.0-5.2) X10^6/uL Hgb 13.3 (12.0-16.0) g/dL Hct 38.2 (36-46) % MCV 98.0 (80-100) fL MCH 34.3 H (26-34) PG MCHC 34.9 (30-36) % RDW 13.4 (11.6-14.8) % Plt Count 523 H (150-400) X10^3/uL Neut % (Auto) 72.9 (50-75) % Lymph % (Auto) 15.2 L (25-40) % [place] % (Auto) 10.7 (3-14) % Eos % (Auto) 0.4 L (2-4) % Baso % (Auto) 0.8 (0-2) % Neut # (Auto) 4600 (7200-4984) /uL Lymph # (Auto) 1000 L (2484-9305) /uL [place] # (Auto) 700 (0-900) /uL Eos # (Auto) 0 (0-450) /uL Baso # (Auto) 100 (0-100) /uL Sodium 125 L (137-145) mmol/L Potassium 3.1 L (3.4-5.1) mmol/L Chloride 89 L (98-107) mmol/L Carbon Dioxide 27 (22-32) mmol/L BUN 8 (7-17) mg/dL Creatinine 0.45 L (0.52-1.04) mg/dL Estimated GFR > 60.0 (>60) mL/min BUN/Creatinine Ratio 17.8 (6-22) Glucose 97 (80-110) mg/dL Calcium 9.4 (8.4-10.2) mg/dL Total Bilirubin 0.6 (0.2-1.3) mg/dL AST 233 H (14-36) IU/L ALT 120 H (<35) IU/L Alkaline Phosphatase 111 (38-126) U/L Total Creatine Kinase 71 (30-135) U/L CK-MB (CK-2) TNP CK-MB (CK-2) Rel Index TNP Troponin I < 0.012 (0.01-0.034) ng/mL Total Protein 6.8 (6.3-8.2) g/dL Albumin 3.9 (3.5-5.0) g/dL Globulin 2.9 (1.7-4.1) g/dL Albumin/Globulin Ratio 1.3 (1.0-2.8) TSH 2.13 (0.47-4.68) uIU/mL U Opiates 300ng/mL cut (Negative) Ur Oxycodone Screen (Negative) Urine Methadone Screen (Negative) Ur Barbiturates Screen (Negative) U Tricyclic Antidepress (Negative) Ur Phencyclidine Scrn (Negative) Ur Amphetamines Screen (Negative) U Methamphetamines Scrn (Negative) Ur MDMA Scrn (Ecstasy) (Negative) U Benzodiazepines Scrn (Negative) Urine Cocaine Screen (Negative) U Marijuana (THC) Screen (Negative) SARS-CoV-2 (PCR) (Negative) 09/04/21 09/04/21 Range/Units 10:00 10:04 WBC (4.5-11.0) X10^3/uL RBC (4.0-5.2) X10^6/uL Hgb (12.0-16.0) g/dL Hct (36-46) % MCV (80-100) fL MCH (26-34) PG MCHC (30-36) % RDW (11.6-14.8) % Plt Count (150-400) X10^3/uL Neut % (Auto) (50-75) % Lymph % (Auto) (25-40) % [place] % (Auto) (3-14) % Eos % (Auto) (2-4) % Baso % (Auto) (0-2) % Neut # (Auto) (3068-1419) /uL Lymph # (Auto) (2377-8259) /uL [place] # (Auto) (0-900) /uL Eos # (Auto) (0-450) /uL Baso # (Auto) (0-100) /uL Sodium (137-145) mmol/L Potassium (3.4-5.1) mmol/L Chloride (98-107) mmol/L Carbon Dioxide (22-32) mmol/L BUN (7-17) mg/dL Creatinine (0.52-1.04) mg/dL Estimated GFR (>60) mL/min BUN/Creatinine Ratio (6-22) Glucose (80-110) mg/dL Calcium (8.4-10.2) mg/dL Total Bilirubin (0.2-1.3) mg/dL AST (14-36) IU/L ALT (<35) IU/L Alkaline Phosphatase (38-126) U/L Total Creatine Kinase (30-135) U/L CK-MB (CK-2) CK-MB (CK-2) Rel Index Troponin I (0.01-0.034) ng/mL Total Protein (6.3-8.2) g/dL Albumin (3.5-5.0) g/dL Globulin (1.7-4.1) g/dL Albumin/Globulin Ratio (1.0-2.8) TSH (0.47-4.68) uIU/mL U Opiates 300ng/mL cut Positive H (Negative) Ur Oxycodone Screen Negative (Negative) Urine Methadone Screen Negative (Negative) Ur Barbiturates Screen Negative (Negative) U Tricyclic Antidepress Negative (Negative) Ur Phencyclidine Scrn Negative (Negative) Ur Amphetamines Screen Negative (Negative) U Methamphetamines Scrn Negative (Negative) Ur MDMA Scrn (Ecstasy) Negative (Negative) U Benzodiazepines Scrn Negative (Negative) Urine Cocaine Screen Negative (Negative) U Marijuana (THC) Screen Negative (Negative) SARS-CoV-2 (PCR) Negative (Negative) Point of Care Testing Glucose POC 117 Urine Dip Bedside Urine Glucose Negative Bedside Urine Bilirubin - Negative Bedside Urine Ketone - Negative Urine Specific [place] 1.010 Bedside Urine Occult Blood - Negative Bedside Urine pH 6.0 Bedside Urine Protein - Negative Bedside Urine Urobilinogen - Negative Bedside Urine Nitrite - Negative Bedside Urine Leukocytes - Negative Esterase Imaging Data CT scan - head: Radiologist's Impression: [address] [address] [address] Scan Report Signed Patient: Tressa Carrera MR#: [id number] : 1960 Acct:[id number] Age/Sex: 61 / F Date of Service: 09/04/21 Loc: ED Accession Number: [id number] ?? Procedure: CT head/brain wo con Ordering Provider: Joaquín Mora D.O. PROCEDURE:? CT HEAD/BRAIN WO CON ? INDICATIONS:? dizzy, headache, confusion, speech ? TECHNIQUE:? Noncontrast 4.5 mm thick angled axial sections acquired from the foramen magnum to the vertex, with coronal and sagittal reformats.? For radiation dose reduction, the following was used:? automated exposure control, adjustment of mA and/or kV according to patient size.? ? COMPARISON:? None. ? FINDINGS:? Image quality:? Excellent.? ? CSF spaces:? Basal cisterns are patent.? No extra-axial fluid collections.? Ventricles are normal in size and shape.? ? Brain:? No midline shift.? No intracranial masses or hemorrhage.? Steiner-white matter interface is normal.? ? Skull and face:? Calvarium and visualized facial bones are intact, without suspicious lesions.? ? Sinuses:? Visualized sinuses and mastoids are clear.? ? IMPRESSION:? No acute intracranial abnormality. ? ? Dictated by: Tomas Mitchell M.D. on 09/04/2021 at 9:34 ? ? Approved by: Tomas Mitchell M.D. on 09/04/2021 at 9:35 ? Discharge Plan Departure Patient Disposition: Admitted As Inpatient Clinical Impression: Acute hyponatremia
--- NOTE | 2021-09-04 09:27 | PC.NURSE ---
Pt confused per her friend,pt answering questions appropriately at triage.
[2021-09-04 09:29] LABS: Add Manual Diff / Slide Review NO; Basophils Absolute Auto 100 /uL (0-100); Basophils Percent Auto 0.8 % (0-2); Eosinophils Absolute Auto 0 /uL (0-450); Eosinophils Percent Auto 0.4 % (2-4); Hematocrit 38.2 % (36-46); Hemoglobin 13.3 g/dL (12.0-16.0); Lymphocytes Absolute Auto 1000 /uL (1100-4500); Lymphocytes Percent Auto 15.2 % (25-40); Mean Corpuscular HGB Conc 34.9 % (30-36); Mean Corpuscular Hemoglobin 34.3 PG (26-34); Monocytes Absolute Auto 700 /uL (0-900); Monocytes Percent Auto 10.7 % (3-14); Neutrophils Absolute Auto 4600 /uL (1500-7000); Neutrophils Percent Auto 72.9 % (50-75); Platelet Count 523 X10^3/uL (150-400); Red Blood Cell Count 3.89 X10^6/uL (4.0-5.2); Red Cell Distribution Width 13.4 % (11.6-14.8); White Blood Cell Count 6.3 X10^3/uL (4.5-11.0)
--- NOTE | 2021-09-04 09:32 | DI.CT.S_ITS ---
PROCEDURE: CT HEAD/BRAIN WO CON INDICATIONS: dizzy, headache, confusion, speech TECHNIQUE: Noncontrast 4.5 mm thick angled axial sections acquired from the foramen magnum to the vertex, with coronal and sagittal reformats. For radiation dose reduction, the following was used: automated exposure control, adjustment of mA and/or kV according to patient size. COMPARISON: None. FINDINGS: Image quality: Excellent. CSF spaces: Basal cisterns are patent. No extra-axial fluid collections. Ventricles are normal in size and shape. Brain: No midline shift. No intracranial masses or hemorrhage. Steiner-white matter interface is normal. Skull and face: Calvarium and visualized facial bones are intact, without suspicious lesions. Sinuses: Visualized sinuses and mastoids are clear. IMPRESSION: No acute intracranial abnormality. Dictated by: Tomas Mitchell M.D. on 09/04/2021 at 9:34 Approved by: Tomas Mitchell M.D. on 09/04/2021 at 9:35
[2021-09-04 09:42] LABS: Alanine Aminotransferase 120 IU/L (<35); Albumin 3.9 g/dL (3.5-5.0); Albumin Globulin Ratio 1.3 (1.0-2.8); Alkaline Phosphatase 111 U/L (38-126); Aspartate Aminotransferase 233 IU/L (14-36); BUN Creatinine Ratio 17.8 (6-22); Bilirubin Total 0.6 mg/dL (0.2-1.3); Blood Urea Nitrogen 8 mg/dL (7-17); Calcium 9.4 mg/dL (8.4-10.2); Carbon Dioxide 27 mmol/L (22-32); Chloride 89 mmol/L (98-107); Creatine Kinase 71 U/L (30-135); Estimated Glomerular Filt Rate > 60.0 mL/min (>60); Globulin 2.9 g/dL (1.7-4.1); Glucose 97 mg/dL (80-110); HEMOLYSIS < 15 (0-50); Potassium 3.1 mmol/L (3.4-5.1); Sodium 125 mmol/L (137-145); Total Protein 6.8 g/dL (6.3-8.2)
[2021-09-04 09:54] LABS: Troponin I < 0.012 ng/mL (0.01-0.034)
[2021-09-04] MEDS: SODIUM CHLORIDE 0.9% 1,000 ML 150 ML IV (10:02)
[2021-09-04 10:03] LABS: Ur Creatinine Normal (Normal); Ur Specific Gravity Normal (Normal); Urine Tetrahydrocannabinol Negative (Negative); Urine pH Normal (Normal)
[2021-09-04 10:04] LABS: UR Morphine/Opiate cutoff 300 Positive (Negative); Urine Amphetamines Negative (Negative); Urine Barbiturates Negative (Negative); Urine Benzodiazepines Negative (Negative); Urine Cocaine Negative (Negative); Urine MDMA Negative (Negative); Urine Methadone Negative (Negative); Urine Methamphetamines Negative (Negative); Urine Oxycodone Negative (Negative); Urine Phencyclidine Negative (Negative); Urine Tricyclic Antidepressant Negative (Negative)
[2021-09-04 10:38] LABS: TSH w/ Reflex to FT4 2.13 uIU/mL (0.47-4.68)
[2021-09-04 11:01] LABS: COVID19 - ADMIT (NP swab/PCR) Negative (Negative)
--- NOTE | 2021-09-04 11:02 | PC.NURSE ---
Patient resting comfortably, friend at the bedside, patient states her son is a Nurse Practitioner.
--- NOTE | 2021-09-04 13:24 | DI.MRI.S_ITS ---
PROCEDURE: MR HEAD/BRAIN WO CON INDICATIONS: confusion TECHNIQUE: Non-contrast axial T1 spin echo, axial T2 fast spin echo, sagittal and axial FLAIR, coronal T2 fast spin echo, axial gradient echo, axial diffusion and ADC through the brain. COMPARISON: Located Within [facility], CT, CT HEAD/BRAIN WO CON, 09/04/2021, 9:28. FINDINGS: Image quality: Excellent. CSF spaces: Ventricles appear symmetric in size and shape. Basal cisterns are patent. No extra-axial fluid collections. Brain: No intracranial bleeds or mass effects. There is cerebral volume loss for age. There are periventricular and deep white matter chronic small vessel ischemic changes. Brainstem appears normal. Diffusion-weighted images show no acute ischemic insults. No chronic ischemic insults. Normal intravascular flow voids are present. Skull and face: Calvarial bone marrow is normal in signal. Orbits are normal. Sinuses: Sinuses and mastoids are clear. IMPRESSION: 1. No acute intracranial process. 2. Mild atrophy and chronic microvascular ischemic changes. Dictated by: Kira England M.D. on 09/04/2021 at 15:15 Approved by: Kira England M.D. on 09/04/2021 at 15:17
--- NOTE | 2021-09-04 14:28 | P.HP_ITS ---
History of Present Illness History of Present Illness Date Patient Seen: 09/04/21 Time Patient Seen: 13:00 Chief complaint: Dizzy, hallucinating, slurred speech, headache Narrative: Ms. Carrera is a 61W with PMH HTN, chronic back pain, daily smoker who presents with confusion, slurred speech, imbalance. She states she initially felt poorly approximately a month ago. She was having difficulty with eating, was having nausea, vomiting, and diarrhea. This has mostly resolved, but she lost somewhere between 10-15 lbs. She than began developing a right sided headache, and was put on steroids by her PCP, for possible temporal arteritits?, though patient is unsure for what exactly she was placed on this. It appears she was only ordered for 60mg daily for three days. She finished the steroids yesterday. She denies headache or vision problems. She often drinks lots of water, but she states while being on prednisone she felt very thirsty and was drinking more water than usual. She has more recently felt confused, she has noted to have auditory and visual hallucinations (she describes seeing lights dancing, and also hearing music when none was playing). She does feel dizzy but has no headache, no blurred vision. She has no fevers/chills. She denies significant alcohol use, no substance abuse. In the ED, workup was done she was noted to have unremarkable vital signs. Labs notable for WBC 6.3, plts 523. Na 125, k 3.1, cl 89, creatinine 0.45. AST 233, ALT 120, TSH 2.13. Tox screen positive for opiates. CT head noted no acute abnormalities. She was given IV fluids. She was admitted for further treatment. 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 Pain of thoracic facet joint Tobacco dependence Family & Social History Family History Sister Leukemia Safety & Behavioral: Feels Safe in Current Yes Environment Been Physically Hurt or No Threatened By a Person Tobacco & Substance use: Smoking Status Current every day smoker alcohol intake frequency 0-2 drinks per day Substance Use Type does not use Meds Home Medications and Allergies Home Medications Medication Instructions Recorded Confirmed Type hydrocodone 5 mg-acetaminophen 325 1 tab PO Q4-6H PRN #20 tab 04/06/18 09/04/21 Rx mg tablet levothyroxine 150 mcg tablet 150 mcg PO DAILY 04/06/18 09/04/21 History acyclovir 400 mg tablet 400 mg PO BID 06/21/19 09/04/21 History methocarbamol 500 mg tablet 500 mg PO BEDTIME #14 tab 10/21/19 09/04/21 Rx lidocaine 5 % topical ointment See Rx Instructions .ROUTE 08/25/20 09/04/21 Rx .COMPLEX #35.44 gram pravastatin 80 mg tablet 80 mg PO DAILY 09/20/20 09/04/21 History amlodipine 2.5 mg tablet mg PO DAILY tab 11/10/20 11/10/20 History Allergies Allergy/AdvReac Type Severity Reaction Status Date / Time hydroxyzine Allergy Severe Shakiness Verified 09/04/21 09:14 Penicillins [PENICILLINS] Allergy Mild RASH Verified 09/04/21 09:14 epinephrine [EPINEPHRINE] AdvReac Mild Verified 09/04/21 09:14 Review of Systems Review of Systems Narrative: 14 systems reviewed and negative aside from what is noted in HPI Exam Vital Signs (past 8 hours): - 09/04/21 09:09 09/04/21 09:11 09/04/21 09:13 Temperature 97.5 F L Pulse Rate 89 89 Respiratory Rate 14 Blood Pressure 129/87 129/87 Pulse Oximetry 98 98 98 09/04/21 09:33 09/04/21 10:00 09/04/21 10:30 Temperature Pulse Rate 84 79 77 Respiratory Rate 16 23 18 Blood Pressure 115/75 117/75 Pulse Oximetry 98 99 100 09/04/21 11:00 09/04/21 11:15 09/04/21 11:30 Temperature Pulse Rate 74 75 76 Respiratory Rate 17 18 19 Blood Pressure 117/74 111/74 109/71 Pulse Oximetry 100 99 96 09/04/21 12:00 09/04/21 12:30 09/04/21 13:15 Temperature 97.3 F L Pulse Rate 81 74 71 Respiratory Rate 21 16 16 Blood Pressure 118/69 109/73 124/85 Pulse Oximetry 96 96 98 Oxygen Delivery Method Room Air Oxygen Flow Rate 0 Objective Labs Result Diagrams: 09/04/21 09:20 11/02/21 09:20 Labs: Laboratory Results - last 24 hr 09/04/21 09/04/21 09/04/21 09:20 09:20 09:57 WBC 6.3 RBC 3.89 L Hgb 13.3 Hct 38.2 MCV 98.0 MCH 34.3 H MCHC 34.9 RDW 13.4 Plt Count 523 H Neut % (Auto) 72.9 Lymph % (Auto) 15.2 L [place] % (Auto) 10.7 Eos % (Auto) 0.4 L Baso % (Auto) 0.8 Neut # (Auto) 4600 Lymph # (Auto) 1000 L [place] # (Auto) 700 Eos # (Auto) 0 Baso # (Auto) 100 Sodium 125 L Potassium 3.1 L Chloride 89 L Carbon Dioxide 27 BUN 8 Creatinine 0.45 L Estimated GFR > 60.0 BUN/Creatinine Ratio 17.8 Glucose 97 Calcium 9.4 Total Bilirubin 0.6 AST 233 H ALT 120 H Alkaline Phosphatase 111 Total Creatine Kinase 71 CK-MB (CK-2) TNP CK-MB (CK-2) Rel Index TNP Troponin I < 0.012 Total Protein 6.8 Albumin 3.9 Globulin 2.9 Albumin/Globulin Ratio 1.3 TSH 2.13 U Opiates 300ng/mL cut Ur Oxycodone Screen Urine Methadone Screen Ur Barbiturates Screen U Tricyclic Antidepress Ur Phencyclidine Scrn Ur Amphetamines Screen U Methamphetamines Scrn Ur MDMA Scrn (Ecstasy) U Benzodiazepines Scrn Urine Cocaine Screen U Marijuana (THC) Screen SARS-CoV-2 (PCR) 09/04/21 09/04/21 10:00 10:04 WBC RBC Hgb Hct MCV MCH MCHC RDW Plt Count Neut % (Auto) Lymph % (Auto) [place] % (Auto) Eos % (Auto) Baso % (Auto) Neut # (Auto) Lymph # (Auto) [place] # (Auto) Eos # (Auto) Baso # (Auto) Sodium Potassium Chloride Carbon Dioxide BUN Creatinine Estimated GFR BUN/Creatinine Ratio Glucose Calcium Total Bilirubin AST ALT Alkaline Phosphatase Total Creatine Kinase CK-MB (CK-2) CK-MB (CK-2) Rel Index Troponin I Total Protein Albumin Globulin Albumin/Globulin Ratio TSH U Opiates 300ng/mL cut Positive H Ur Oxycodone Screen Negative Urine Methadone Screen Negative Ur Barbiturates Screen Negative U Tricyclic Antidepress Negative Ur Phencyclidine Scrn Negative Ur Amphetamines Screen Negative U Methamphetamines Scrn Negative Ur MDMA Scrn (Ecstasy) Negative U Benzodiazepines Scrn Negative Urine Cocaine Screen Negative U Marijuana (THC) Screen Negative SARS-CoV-2 (PCR) Negative Assessment & Plan Assessment & Plan narrative: Ms. Carrera is a 61W who presents with confusion, hallucinations, found to have hyponatremia. 1. Acute metabolic encephalopathy -likely related to hyponatremia, though sodium only moderately low -no evidence of infection -CT head ok -MRI head ordered and pending 2. Hyponatremia -patient appears euvolemic or only mildly hypovolemic -does endorse drinking lots of water, especially after being on prednisone -did get IV fluid in ED -serum osms, urine osms, urine sodium ordered -TSH normal -chest xray to evaluate for pulmonary process -medications patient is currently taking are not common causes of hyponatremia -pain may cause siadh, will order pain control -repeat sodium this afternoon to see effect after IV fluids -check Na q6, and goal of 6-8 max increase of sodium in first 24 hours -check AM cortisol tomorrow to rule out of adrenal insufficiency 3. Transaminitis -etiology not clear -continue to trend -abdominal ultrasound ordered -if continues to rise will need to check hepatitis serologies -ammonia ordered 4. Hypertension -hold anti-hypertensives for now 5. Chronic back pain -continue norco -previous MRIs showed degenerative changes -if continues to have significant pain, could consider MRI of spine, but currently pain is described by patient as at baseline 6. Hypothyroidism -TSH normal -continue synthroid 7. Hyperlipidemia -hold statin for now CODE: Full Proxy: Myesha Morales, friend I have utilized all available immediate resources to obtain, update, or review the patient's current medications. Time Spent With Patient Critical Care time: I spent a total of [] minutes of critical care time on this patient's care today; this time is exclusive of procedural time. Quality MIPS - Admit I confirm the patient?s Advance Care Plan is present, Code status is documented, Surrogate decision maker is in patient?s record [If Yes, STOP here]: Yes
[2021-09-04] MEDS: POTASSIUM CHLORIDE 20 MEQ TAB 40 MEQ PO (14:33)
[2021-09-04] MEDS: LORazepam 2 MG/ML INJ 0.5 MG IV (14:42)
--- NOTE | 2021-09-04 14:42 | DI.RAD.S_ITS ---
PROCEDURE: XR CHEST 1V INDICATIONS: hyponatremia, siadh?, lung abnormality? TECHNIQUE: One view of the chest was acquired. COMPARISON: [facility], , CHEST 2 VIEW, 07/25/2010, 8:21. FINDINGS: Surgical changes and devices: None. Lungs and pleura: Ill-defined airspace opacities are noted in right upper lobe suggestive of developing right upper lobe infiltrate. Chronic emphysematous changes are seen. Mild pulmonary vascular congestion is seen.. No pleural effusions or pneumothorax. Mediastinum: Mediastinal contours appear normal. Heart size is normal. Bones and chest wall: No suspicious bony lesions. Overlying soft tissues appear unremarkable. IMPRESSION: Finding is suggestive of developing right upper lobe infiltrate. COPD and mild congestion. No pleural effusion or pneumothorax. Dictated by: Hebert Angel M.D. on 09/04/2021 at 15:24 Approved by: Hebert Angel M.D. on 09/04/2021 at 15:25
[2021-09-04 15:09] LABS: Creatinine Urine Random 59.1 mg/dL; Sodium Urine Random < 5 mmol/L (30-90)
--- NOTE | 2021-09-04 15:25 | PT.IIE ---
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 no steps to enter Home Environment High Toilet,Walk in Shower M2 PT-IP Current Condition Start: 09/04/21 16:02 Freq: NEEDED Status: Active Protocol: Document 09/04/21 15:25 AB (Rec: 09/04/21 16:14 AB [id number]) Physical Therapy Current Condition Current Condition Evaluation Date 09/04/21 Treatment Diagnosis hyponatremia; difficulty in walking Onset Date 09/04/21 M3 PT-IP Subjective Start: 09/04/21 16:02 Freq: NEEDED Status: Active Protocol: Document 09/04/21 15:25 AB (Rec: 09/04/21 16:14 AB [email or web address]) Subjective Physical Therapy Visit Type Type Initial Evaluation Visit Start Time 15:25 Visit Stop Time 16:00 Total Visit Minutes 35 Number of FLOWER CHENILLER Visits 0 Physical Therapy Visit Comments Patient Comments pt initially refusing PT; 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 educated pt regarding purpose of PT in the hospital and agreed to do PT afterwards. Therapy Pain Assessment Pain Present Pain Present Denied Pain M4 PT-IP Mobility and Gait Start: 09/04/21 16:02 Freq: NEEDED Status: Active Protocol: Document 09/04/21 15:25 AB (Rec: 09/04/21 16:14 AB [id number]) PT-Bed Mobility Assessment Supine to Sit Supine to Sit Independent Sit to Supine Sit to Supine Independent PT-Transfer Assessment Sit to and From Stand Sit to and from Stand Standby Assistance Equipment Transfer Assistive Device None Orthotic/Prosthetic Devices or Brace: No Comments Mobility Comments pt completed supine to sit independent. completed sit to stand SBA. ambulated in room SBA to CGA ~ 30 ft without AD with (+) LOB x 3 posteriorly to the R requiring CGA. pt stated that she has no h/o falls. pt requested to go back to bed. completed sit to supine SBa. positioned in bed . call light and table placed within reach. Gait Assessment Gait Gait Assistance Required: Standby Assistance,Contact Guard Assist Distance (Feet) 30 Able to Maintain Weight Bearing Status Yes During Gait Assistive Devices Assistive Device None Orthotic/Prosthetic Devices or Brace: No Gait Deviations General Gait Pattern Antalgic Factors Limiting Gait Function Factors Limiting Gait Function Decreased Activity Tolerance, Decreased Strength,Poor Balance,Poor Safety Awareness PT-Balance Assessment Sitting Balance and Reactions Static Sitting Balance Ability Good Dynamic Sitting Balance Ability Good Standing Balance and Reactions Static Standing Balance Ability Fair Dynamic Standing Balance Ability Fair Device Used without AD M5 PT-IP Objective Assessments Start: 09/04/21 16:02 Freq: NEEDED Status: Active Protocol: Document 09/04/21 15:25 AB (Rec: 09/04/21 16:14 AB [id number]) Orientation Orientation/Cognition Level of Alertness Alert Orientation Name,Place,Situation Safety Awareness Decreased Safety Awareness Gross Range of Motion Lower Extremity ROM Assessment Within Functional Limits Strength Lower Extremity Strength Hip 4-/5 Knee 4-/5 Muscle Tone Muscle Tone WNL Yes M6 PT-IP Treatment Start: 09/04/21 16:02 Freq: NEEDED Status: Active Protocol: Document 09/04/21 15:25 AB (Rec: 09/04/21 16:14 AB [email or web address]) Physical Therapy Treatment Education Education Provided Safety M7 PT-IP Assessment and Plan Start: 09/04/21 16:02 Freq: NEEDED Status: Active Protocol: Document 09/04/21 15:25 AB (Rec: 09/04/21 16:14 AB [id number]) PT Summary Assessment and Plan Potential Rehabilitation Potential Fair Status of Condition at Evaluation Evolving Summary Impairments Strength,Balance,Cognition,Bed Mobility,Transfers,Gait, Activity Tolerance Assessment Summary pt requiring CGA with ambulation without AD with (+) LOB. will need further assessment to determine safe d /c plan and use of AD for safety if needed. will continue to assess progress. Goals Bed Mobility Goal Independent Transfer Goal Independent,Front Wheeled Walker Gait Goal Independent,Front Wheel Walker Gait Distance 200 Other Goals improve ambulation without AD 250 ft mod I Days to Meet Goals 5 Frequency of Treatment Frequency Of Treatment Once a Day Treatment Plan Physical Therapy Treatment Plan Bed Mobility Training,Transfer Training,Gait Training, Therapeutic Exercise,Balance Retraining,Discharge Planning, Neuromuscular Re-ed, Coordination Retraining Precautions Other Precautions falls Recommendations To Nursing Amount of Assist Needed 1 Person Assist Discharge Recommendations PT Discharge Recommendations Home with Assistance,Home Health Equipment Needed for Home Before FWW if not safe without AD Discharge Transportation Needs at Discharge Private Vehicle
[2021-09-04 16:02] LABS: Ammonia (NH3) 12 umol/L (9-30); BUN Creatinine Ratio 16.3 (6-22); Blood Urea Nitrogen 8 mg/dL (7-17); Calcium 9.1 mg/dL (8.4-10.2); Carbon Dioxide 29 mmol/L (22-32); Chloride 94 mmol/L (98-107); Estimated Glomerular Filt Rate > 60.0 mL/min (>60); Glucose 109 mg/dL (80-110); HEMOLYSIS < 15 (0-50); Potassium 3.4 mmol/L (3.4-5.1); Sodium 130 mmol/L (137-145)
--- NOTE | 2021-09-04 16:53 | DIET.CONS ---
Addendum entered by Carrol Edgar 09/04/21 17:02: Pt may benefit from B12 lab draw secondary to mostly vegan diet, neurological sx and N/V. Original Note: Dietary Consultation Note Admission Date: 09/04/2021 12:50 Assessment: 61y F admitted for dizziness and hallucinations referred to nutrition for reported recent weight loss and loss of appetite. Pt reports terrible August. Starting in early August pt lost her appetite. Pt would try to eat banana but would vomit it up. Pt also had N/D. At that time pt weighted 130# and was admitted today at 120# (-7.7% unintentional in 4w, severe). Pt does not feel her appetite has returned to normal yet and does not think her weight has plateaued. Pt concerned and scared about this loss of appetite. Pt [place] [address] [facility]. Pt follows a mostly vegetarian (often vegan diet) with sporadic intake of dairy and shellfish. Pt reports seeing lights and hearing music when she would try to sleep at night. Ht: 160.02 cm Wt: 54.7 kg BMI: 21.3 UBW: 63.6kg Last BM: 09/04/21 (09/04/21 14:28) MNA: 9 Milton Score: 23 Diet: 09/04/21 Dinner Heart Healthy Diet Diet Modifications: Labs: RBC 3.89 X10^6/uL (4.0-5.2) L 09/04/21 09:20 Hgb 13.3 g/dL (12.0-16.0) 09/04/21 09:20 Hct 38.2 % (36-46) 09/04/21 09:20 Creatinine 0.49 mg/dL (0.52-1.04) L 09/04/21 15:40 Nutrition Diagnosis: Severe Acute Protein Calorie Malnutrition r/t poor appetite aeb 7.7% unintended weight loss in 1mo (severe), pt reports 4w of N/V/D and POs meeting <50% EER. Interventions: 1. Helped pt to navigate patient menu with appropriate vegetarian choices to support nutrition status. Assisted pt in ordering dinner and breakfast. 2. Recc ONS smoothie for each meal where POs <75% to support nutrition repletion. 3. Pt may benefit from B12 lab draw secondary to mostly vegan diet and neurological sx. EER: 1650kcals (30kcal/kg per PCM), 66g PRO (1.2g/kg per PCM) Monitoring/Evaluations: following POs, source of poor appetite Electronically Signed by: Carrol Edgar 09/04/21 16:53 Clinical Dietitian [address] [address]
--- NOTE | 2021-09-04 17:10 | DI.CT.S_ITS ---
PROCEDURE: CT CHEST WO CON INDICATIONS: infiltrates on cxray TECHNIQUE: Noncontrast 5 mm thick sections acquired from the pulmonary apices to the posterior costophrenic angles. 1 mm lung window, 5 mm thick coronal and sagittal and 7 mm axial MIP reformats were then acquired. For radiation dose reduction, the following was used: automated exposure control, adjustment of mA and/or kV according to patient size. COMPARISON: None. FINDINGS: Image quality: Excellent. Lungs and pleura: Near confluent ground-glass opacity with overlying patchy small alveolar opacities predominantly involving the right upper lobe. Interstitial thickening is seen at both lung bases. There are no other areas of consolidation or ground-glass opacity. No pleural effusion or pneumothorax. No dominant lung masses or nodules. Mild bronchial wall thickening in the right upper lobe. Otherwise patent airways. Mediastinum: Heart size is normal. No pericardial effusion. No mediastinal adenopathy by size criteria. Thoracic aorta and central pulmonary arteries are normal in size. Esophagus is normal in caliber. No hiatal hernia. Bones and chest wall: No suspicious bony lesions. No vertebral body compression fractures. Degenerative disc and mild degenerative endplate changes in the mid thoracic spine. No axillary or supraclavicular adenopathy by size criteria. Thyroid gland is partially imaged and the visible portion is grossly normal. . Abdomen: Visualized upper abdominal solid organs and bowel loops appear normal in the absence of contrast. IMPRESSION: 1. Findings of an infectious or inflammatory lobar pneumonia in the right upper lobe. 2. No pleural effusion. Dictated by: Yudelka Mehta M.D. on 09/04/2021 at 19:00 Approved by: Yudelka Mehta M.D. on 09/04/2021 at 19:04
[2021-09-04] MEDS: ACYCLOVIR 400 MG TABLET PO (20:14)
[2021-09-05] VITALS (7 sets, daily range): BP systolic 98–125; BP diastolic 71–82; PULSE 68–78; RESP 16–19; TEMP 35.5–35.8; O2SAT 93–98
[2021-09-05 06:15] LABS: Add Manual Diff / Slide Review NO; Basophils Absolute Auto 0 /uL (0-100); Basophils Percent Auto 0.5 % (0-2); Eosinophils Absolute Auto 100 /uL (0-450); Eosinophils Percent Auto 0.8 % (2-4); Hematocrit 38.1 % (36-46); Hemoglobin 12.9 g/dL (12.0-16.0); Lymphocytes Absolute Auto 1100 /uL (1100-4500); Mean Corpuscular Hemoglobin 33.5 PG (26-34); Mean Corpuscular Volume 98.6 fL (80-100); Monocytes Absolute Auto 600 /uL (0-900); Monocytes Percent Auto 9.4 % (3-14); Neutrophils Absolute Auto 4900 /uL (1500-7000); Neutrophils Percent Auto 73.3 % (50-75); Platelet Count 536 X10^3/uL (150-400); Red Blood Cell Count 3.86 X10^6/uL (4.0-5.2); Red Cell Distribution Width 13.7 % (11.6-14.8); White Blood Cell Count 6.7 X10^3/uL (4.5-11.0)
[2021-09-05] MEDS: LEVOTHYROXINE 150 MCG TABLET PO (06:20)
[2021-09-05 06:25] LABS: Alanine Aminotransferase 103 IU/L (<35); Albumin 3.3 g/dL (3.5-5.0); Albumin Globulin Ratio 1.3 (1.0-2.8); Alkaline Phosphatase 89 U/L (38-126); Aspartate Aminotransferase 162 IU/L (14-36); Bilirubin Total 0.4 mg/dL (0.2-1.3); Bilirubin Unconjugated 0.2 mg/dL (0.0-1.1); Globulin 2.6 g/dL (1.7-4.1); HEMOLYSIS < 15 (0-50); Total Protein 5.9 g/dL (6.3-8.2)
[2021-09-05 06:26] LABS: BUN Creatinine Ratio 14.9 (6-22); Blood Urea Nitrogen 7 mg/dL (7-17); Calcium 9.3 mg/dL (8.4-10.2); Carbon Dioxide 33 mmol/L (22-32); Chloride 100 mmol/L (98-107); Estimated Glomerular Filt Rate > 60.0 mL/min (>60); Glucose 87 mg/dL (80-110); HEMOLYSIS < 15 (0-50); Potassium 3.8 mmol/L (3.4-5.1); Sodium 135 mmol/L (137-145)
[2021-09-05 06:54] LABS: Cortisol AM (Before 10AM) 11.7 ug/dL (4.46-22.7)
--- NOTE | 2021-09-05 07:00 | DI.US.S_ITS ---
PROCEDURE: US ABDOMEN LIMITED INDICATIONS: TRANSAMINITIS TECHNIQUE: Real-time focused scanning was performed of the abdomen, with image documentation. COMPARISON: [facility], US, ABDOMEN COMPLETE, 07/20/2010, 8:53. FINDINGS: The liver is normal in size, measuring 13.7 cm. There is diffusely increased hepatic echogenicity. A few small nonshadowing mobile echogenic foci within the gallbladder are consistent with gallstones. There is no gallbladder wall thickening or pericholecystic fluid. Sonographic Sheridan sign is negative. There is no intrahepatic or extrahepatic biliary ductal dilatation. The common bile duct measures 6 mm. The visualized portions of the pancreas demonstrate no significant abnormality. No free fluid is seen in the right upper quadrant. IMPRESSION: 1. Increased hepatic echogenicity is seen, most commonly secondary to diffuse hepatic steatosis but other sources of hepatocellular disease cannot be excluded. Recommend clinical correlation. 2. Cholelithiasis without signs of acute cholecystitis. Dictated by: Chi Tinoco M.D. on 09/05/2021 at 8:09 Approved by: Chi Tinoco M.D. on 09/05/2021 at 8:12
--- NOTE | 2021-09-05 10:29 | P.DS_ITS ---
History of Present Illness History of Present Illness Date Patient Seen: 09/05/21 Time Patient Seen: 10:29 Chief complaint: Dizzy, hallucinating, slurred speech, headache Narrative: Per Dr. Hatch, Ms. Carrera is a 61W with PMH HTN, chronic back pain, daily smoker who presents with confusion, slurred speech, imbalance. She states she initially felt poorly approximately a month ago. She was having difficulty with eating, was having nausea, vomiting, and diarrhea. This has mostly resolved, but she lost somewhere between 10-15 lbs. She than began developing a right sided headache, and was put on steroids by her PCP, for possible temporal arteritits?, though patient is unsure for what exactly she was placed on this. It appears she was only ordered for 60mg daily for three days. She finished the steroids yesterday. She denies headache or vision problems. She often drinks lots of water, but she states while being on prednisone she felt very thirsty and was drinking more water than usual. She has more recently felt confused, she has noted to have auditory and visual hallucinations (she describes seeing lights dancing, and also hearing music when none was playing). She does feel dizzy but has no headache, no blurred vision. She has no fevers/chills. She denies significant alcohol use, no substance abuse. In the ED, workup was done she was noted to have unremarkable vital signs. Labs notable for WBC 6.3, plts 523. Na 125, k 3.1, cl 89, creatinine 0.45. AST 233, ALT 120, TSH 2.13. Tox screen positive for opiates. CT head noted no acute abnormalities. She was given IV fluids. She was admitted for further treatment. Discharge Providers Provider Date of admission: 09/04/21 12:50 Discharge Date: 09/05/21 Primary care physician: Kaitlin Chauhan PA-C Consults: 09/04/21 13:24 Consult to Physical Therapy Evaluate & Treat Comment: Physician Instructions: Evaluate and Treat 09/04/21 14:40 Consult to Dietitian, Adult Routine Comment: Reason For Exam: increased weight loose recently 09/05/21 10:16 Consult to General Surgery Routine Comment: Consulting Provider: Elda Church Reason for consultation: temporal artery biopsy Has provider been notified: Yes Discharge provider: Neptali Vale DO Summary Hospital Course Discharge Diagnosis: 1. Acute metabolic encephalopathy 2. Hyponatremia, acute, resolved 3. Giant cell arteritis, possible 4. Transaminitis, improved 5. Hypertension, chronic 6. Chronic back pain 7. Hypothyroidism 8. Hyperlipidemia Hospital Course: This is a 61-year-old female with a past medical history of hypertension, chronic back pain, hyperlipidemia, hypothyroidism who presented to the emergency room with an acute encephalopathy and hallucinations. She had presented to her primary care provider a few days prior with a right-sided headache and some visual symptoms. She was placed on 60 mg of prednisone at that time for presumed giant cell arteritis, but had only been given 3 days and per the patient there was no plans for follow-up. Here she was noted to have a hyponatremia with a sodium of 125. There is a report stating her CRP was >200 from 08/29. With cessation of steroids and IV fluids the patient slowly began to improve, however with possible giant cell arteritis she was referred for a temporal artery biopsy which General surgery, which will be as an outpatient in the next couple of days. Discussed the risk of visual loss with the patient, she was not willing to resume 60 mg of prednisone at discharge given her presenting symptoms, but was agreeable to 30 mg. She was further advised if any return of headache or visual symptoms to come back to the emergency room. Other Possibilities could include polypharmacy given her chronic opiate use. The patient also developed a transaminitis with an AST of around 200 which improved, the etiology is not entirely clear but may be due to transient hypotension or dehydration given her hyponatremia. I do recommend repeat laboratory evaluation as an outpatient with her primary care provider of her sodium level and transaminitis. As above, I did discuss the case with General surgery who planned on calling the patient for an outpatient follow-up for temporal artery biopsy in the next couple of days. Exam Vital Signs (past 8 hours): - 09/05/21 03:27 09/05/21 06:00 09/05/21 07:00 Temperature 96.4 F L 96 F L Pulse Rate 78 71 Respiratory Rate 17 16 Blood Pressure 119/82 125/74 Pulse Oximetry 93 93 98 09/05/21 08:48 Temperature Pulse Rate Respiratory Rate Blood Pressure Pulse Oximetry 96 Oxygen Delivery Method Room Air Oxygen Flow Rate 0 Narrative Exam Narrative: GENERAL APPEARANCE: Well developed, well nourished, slightly thin female in no acute distress. SKIN: Inspection of the skin reveals no rashes, ulcerations or petechiae. HEENT: Normocephalic atraumatic, extraocular muscles are intact, oropharynx is clear and mucous membranes are moist CHEST: Normal AP diameter and normal contour without any kyphoscoliosis. LUNGS: Auscultation of the lungs revealed no wheezes, rhonchi, or rales. CARDIOVASCULAR: There was a regular rate and rhythm without any murmurs, gallops, rubs. Peripheral pulses were 2+ and symmetric. ABDOMEN: S NT ND MUSCULOSKELETAL: There was no tenderness or effusions noted. Muscle strength and tone were normal. EXTREMITIES: No cyanosis, clubbing or edema. NEUROLOGIC: Alert and oriented x 3. Normal affect. Gait was normal. Strength is +5/5 in the Upper Extremities and Lower Extremities Bilaterally. Sensation to touch was normal. Objective Labs Result Diagrams: 09/05/21 05:44 09/05/21 05:44 Labs: Laboratory Results - last 24 hr 09/04/21 09/04/21 09/04/21 09:57 10:04 13:44 WBC RBC Hgb Hct MCV MCH MCHC RDW Plt Count Neut % (Auto) Lymph % (Auto) Harmon % (Auto) Eos % (Auto) Baso % (Auto) Neut # (Auto) Lymph # (Auto) Harmon # (Auto) Eos # (Auto) Baso # (Auto) Sodium Potassium Chloride Carbon Dioxide BUN Creatinine Estimated GFR BUN/Creatinine Ratio Glucose Calcium Total Bilirubin Conjugated Bilirubin Unconjugated Bilirubin AST ALT Alkaline Phosphatase Ammonia Total Protein Albumin Globulin Albumin/Globulin Ratio TSH 2.13 Cortisol AM Sample Ur Random Sodium < 5 L Urine Creatinine 59.1 SARS-CoV-2 (PCR) Negative 09/04/21 09/04/21 09/05/21 15:40 15:40 05:44 WBC 6.7 RBC 3.86 L Hgb 12.9 Hct 38.1 MCV 98.6 MCH 33.5 MCHC 34.0 RDW 13.7 Plt Count 536 H Neut % (Auto) 73.3 Lymph % (Auto) 16.0 L Harmon % (Auto) 9.4 Eos % (Auto) 0.8 L Baso % (Auto) 0.5 Neut # (Auto) 4900 Lymph # (Auto) 1100 Harmon # (Auto) 600 Eos # (Auto) 100 Baso # (Auto) 0 Sodium 130 L Potassium 3.4 Chloride 94 L Carbon Dioxide 29 BUN 8 Creatinine 0.49 L Estimated GFR > 60.0 BUN/Creatinine Ratio 16.3 Glucose 109 Calcium 9.1 Total Bilirubin Conjugated Bilirubin Unconjugated Bilirubin AST ALT Alkaline Phosphatase Ammonia 12 Total Protein Albumin Globulin Albumin/Globulin Ratio TSH Cortisol AM Sample Ur Random Sodium Urine Creatinine SARS-CoV-2 (PCR) 09/05/21 09/05/21 09/05/21 05:44 05:44 05:44 WBC RBC Hgb Hct MCV MCH MCHC RDW Plt Count Neut % (Auto) Lymph % (Auto) Harmon % (Auto) Eos % (Auto) Baso % (Auto) Neut # (Auto) Lymph # (Auto) Harmon # (Auto) Eos # (Auto) Baso # (Auto) Sodium 135 L Potassium 3.8 Chloride 100 Carbon Dioxide 33 H BUN 7 Creatinine 0.47 L Estimated GFR > 60.0 BUN/Creatinine Ratio 14.9 Glucose 87 Calcium 9.3 Total Bilirubin 0.4 Conjugated Bilirubin 0.0 Unconjugated Bilirubin 0.2 AST 162 H ALT 103 H Alkaline Phosphatase 89 Ammonia Total Protein 5.9 L Albumin 3.3 L Globulin 2.6 Albumin/Globulin Ratio 1.3 TSH Cortisol AM Sample 11.7 Ur Random Sodium Urine Creatinine SARS-CoV-2 (PCR) [facility] Medical History (Updated 09/05/21 @ 12:37 by Najma Jacob RN) Anxiety Foraminal stenosis of thoracic region Hypothyroid 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 This improved with fluids. You are being referred for a biopsy to rule out an inflammatory disorder which can cause vision loss. Please continue to take steroids, ideally as discussed this would be high dose steroids but you did not tolerate this. Please follow up with your PCP after biopsy. Return to ER with any visual symptoms or if return of headaches. Nursing Discharge Comment: Dr. Church's office will call you with appointment. They are thinking they will see you on Friday. Discharge orders & Medications Prescriptions: New prednisone 10 mg tablet 30 mg PO DAILY 14 Days Qty: 42 RF: 0 Continued levothyroxine 150 mcg tablet 150 mcg PO DAILY RF: 0 hydrocodone-acetaminophen 5-325 mg tablet 1 tab PO Q4-6H PRN (Reason: pain) Qty: 20 RF: 0 lidocaine 5 % ointment See Rx Instructions .ROUTE .COMPLEX Qty: 35.44 RF: 2 acyclovir 400 mg tablet 400 mg PO BID RF: 0 methocarbamol 500 mg tablet 500 mg PO BEDTIME Qty: 14 RF: 0 pravastatin 80 mg tablet 80 mg PO DAILY RF: 0 amlodipine 2.5 mg tablet PO DAILY RF: 0 Follow up/Referrals: Kaitlin Chauhan PA-C [Primary Care Provider] - Diet/Activity/Treatments Diet: Diet as Tolerated Activity: As tolerated Visit Report/Discharge Packet Instructions: DI for Hyponatremia Discharge Data Primary Care Provider: Kaitlin Chauhan Attending Provider: Corey Hatch VTE Deep Vein Thrombosis/Pulmonary Embolism Present on Admission: No
--- NOTE | 2021-09-05 11:06 | PT-IP ANOTE ---
Pt was up walking around I no AD, stable upon visual assessment, dressed and stated is doing well, already to DC, just waiting on nurse to remove IV and give DC papers to go home. WHEELCHAIR VAN OPERATOR FIRST RESPONDER/ SPTA asked if pt had any concerns or questions from physical therapy stand point, pt responded no I don't need to see therapy, feel back to how getting around before coming in. WHEELCHAIR VAN OPERATOR FIRST RESPONDER acknowledge pts reports, pt was walking around room with visitor in room when left. WHEELCHAIR VAN OPERATOR FIRST RESPONDER spoke with nursing pt declined therapy, dressed and stating waiting for nursing for DC when available.
--- NOTE | 2021-09-05 11:15 | CM.DANOTE ---
Patient is a 61 yo female who was admitted on 09/04/21 for Dizzy/Slurred speech/headache. Pt has [facility] for insurance and her PCP is Kaitlin Chauhan. EMR was reviewed. Per , pt with encephalopathy likely due to hyponatremia. MRI and abdominal ultrasound ordered and pending. Per PT, recommending home with assist and HH yesterday as pt was below baseline. SW met bedside with pt and explained role and pt confirms that she lives on 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 Pt has a hx of arthritis and pain but is independent at baseline with ADL's and drives and does not use DME for ambulation. Pt states that she is feeling so much better and feels back to baseline and declines the need for HH. Pt states that her friend and coworker Myesha Morales plans to provide transport home at d/c and is available today to transport. Pt does not anticipate any needs at d/c. Asbestos Removal Worker met with pt for some ideas on her ongoing weight loss and difficulty with eating the past month or so. Per MD, pt now medically stable to d/c home and no identified barriers to discharge. Plan: Patient to d/c home via friend POV today and no further SW needs at this time. NAVI Duncan Discharge Planning/Care Management Advanced directive, confirm from FAMILY Start: 09/04/21 14:40 Freq: Q24H Status: Active Protocol: Document 09/04/21 17:00 CEW (Rec: 09/04/21 18:47 CEW [id number]) Advance Directive, confirm on record Time 17:00 Person contacted patient Copy received No CM Discharge Assessment Start: 09/05/21 11:13 Freq: Status: Active Protocol: Document 09/05/21 11:14 BF (Rec: 09/05/21 11:15 BF [id number]) Discharge Planning Assessment Assigned Global Risk Management Director NAVI Giraldo DPOA/Assigned Designee Name friend Myesha Morales Advance Directives? Yes Advance Directives on File No History Provided By Patient,Medical Record Has Patient been admitted in last 30 No days? Prior Living Arrangements House Household Members none Type of transporation used prior to Drives own vehicle admit Independent with ADL's Yes Is patient alert and oriented? Yes Caregiver for Another No Barriers to Discharge No Discharge Plan Home Transportation Arrangement dmitry Brunner plans to provide transport at d/c Referrals Initiated None needed Review Status In Process Please Provide Date Initial DC 09/05/21 Assessment Was Performed Next Review Type Continued Stay Review
--- NOTE | 2021-09-05 12:51 | PC.NURSE ---
Discharge: Pt feel ready to d/c to home. Seen by MD and given discharge instructions. US was completed. She has been up indep in the room and no dizziness or problems. She is oriented. Denies any pain. Taking fluids w/out problems. Vds w/out diff. She is wanting to go home. Discharge packet given. Questions answered. Rx has been esent to her pharmacy and she is aware. Final instructions given by Joao RESENDIZ. Pt dc to home via auto. Reported no concerns
[2021-09-05 15:36] LABS: Osmolality, Serum 259 mOsmol/kg (280-301)
[2021-09-06 12:28] LABS: Osmolality Urine 241 mOsmol/kg (.)
== END 2021-09-05 11:35 | disposition home or self-care (01) ==
LOC: ED 10:58 → AC 14:14
PROVIDERS: Admitting Provider Internal Medicine; Emergency Provider Emergency Medicine; PCP Physician Assistant; Referring Provider Emergency Medicine; Visit Provider Internal Medicine
DX: R42 Dizziness and giddiness (principal); G93.41 Metabolic encephalopathy; R44.3 Hallucinations, unspecified; R47.81 Slurred speech; R51.9 Headache, unspecified; R29.700 NIHSS score 0; I10 Essential (primary) hypertension; F17.210 Nicotine dependence, cigarettes, uncomplicated; G89.29 Other chronic pain; M54.9 Dorsalgia, unspecified; E87.1 Hypo-osmolality and hyponatremia; R74.01 Elevation of levels of liver transaminase levels; E03.9 Hypothyroidism, unspecified; E78.5 Hyperlipidemia, unspecified; Z20.822 Contact with and (suspected) exposure to COVID-19
CPT/HCPCS: 36415; 70450; 70551; 71045; 71250; 76705; 80048; 80053; 80076; 80305; 81003; 82140; 82533; 82550; 82570; 82962; 83930; 83935; 84300; 84443; 84484; 85025; 87635; 93005; 94760; 96361; 96374; 97162; 99285; C9803; G0378; J2060

== ENCOUNTER 2021-09-11 11:24 | Day surgery (SDC) | payer OTHER, SELFPAY ==
[2021-09-04 14:28] VITALS: BMI 21.3
--- NOTE | 2021-09-11 | PATH_ITS ---
[facility] Accession Number: [id number] . 01 Material submitted: . artery - RIGHT TEMPORAL ARTERY . 01 Diagnosis: Right Temporal Artery, Biopsy: Segment of artery with no evidence of giant cell arteritis; please see comment. Predominantly intact internal elastic lamina highlighted on an elastin stain. . [facility] 09/13/2021 1552 Local . 01 Comment: A total of 20 cross sections of temporal artery are examined. Features diagnostic of giant cell arteritis are not identified in the biopsied material. Please note, a negative biopsy does not entirely exclude the possibility of giant cell arteritis, and clinical correlation is required for complete evaluation. . As part of routine quality control scientist, Dr. Awad has reviewed this case and agrees there is no histologic evidence of giant cell arteritis. . 01 Electronically signed: . Joel Obando MD, PhD, Pathologist NPI- [id number] . 01 Gross description: . RIGHT TEMPORAL ARTERY: Received in formalin is 1 fragment(s) of ngo, soft tissue measuring 1.4 x 0.2 x 0.2 cm submitted entirely in 1 cassette(s) /GENI 09/12/2021 1853 Local . 01 Microscopic: . An elastin stain highlights a predominantly intact internal elastic lamina in each of five cross sections. A control stain shows appropriate reactivity. . 01 Pathologist provided ICD-10: H54.511A . 01 CPT . 499267, [id number] Performed at: 01 [facility] [address] [place] [address], [place], [place] [id number] MD Elver Awad MD Phone: [phone]
[2021-09-11 12:28] VITALS: BP 133/90; PULSE 81; RESP 20; TEMP 36.6; O2SAT 98; BMI 21.5
[2021-09-11 12:46] LABS: COVID19 -Nasal RAPID Negative (Negative)
[2021-09-11] MEDS: LACTATED RINGERS 1,000 ML 42 ML IV (12:52)
--- NOTE | 2021-09-11 13:16 | PM.HP.1 ---
History of Present Illness History of Present Illness Date Patient Seen: 09/11/21 Time Patient Seen: 13:16 Chief complaint: TEMPORAL ARTERY BX, SDC Narrative: Recent sudden onset right temperal headache shouting into the scalp. No vision changes. Pain has subsided. She does not recall tenderness at the religion or face. elevated CRP. 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 Pain of thoracic facet joint Tobacco dependence Family & Social History Family History Sister Leukemia Social History: household members none Tobacco & Substance use: Tobacco type cigarettes Smoking Status Current every day smoker alcohol intake current alcohol intake frequency holiday/special occasion Substance Use Type opiates Meds Home Medications and Allergies Home Medications Medication Instructions Recorded Confirmed Type hydrocodone 5 mg-acetaminophen 325 1 tab PO Q4-6H PRN #20 tab 04/06/18 09/11/21 Rx mg tablet levothyroxine 150 mcg tablet 150 mcg PO DAILY 04/06/18 09/11/21 History acyclovir 400 mg tablet 400 mg PO BID 06/21/19 09/11/21 History methocarbamol 500 mg tablet 500 mg PO BEDTIME #14 tab 10/21/19 09/05/21 Rx lidocaine 5 % topical ointment See Rx Instructions .ROUTE 08/25/20 09/05/21 Rx .COMPLEX #35.44 gram pravastatin 80 mg tablet 80 mg PO DAILY 09/20/20 09/11/21 History amlodipine 2.5 mg tablet 2.5 mg PO DAILY tab 11/10/20 11/10/20 History prednisone 10 mg tablet 30 mg PO DAILY 14 Days #42 tab 09/05/21 09/11/21 Rx Allergies Allergy/AdvReac Type Severity Reaction Status Date / Time hydroxyzine Allergy Severe Shakiness Verified 09/04/21 09:14 Penicillins [PENICILLINS] Allergy Mild RASH Verified 09/04/21 09:14 epinephrine [EPINEPHRINE] AdvReac Mild Verified 09/04/21 09:14 Exam Vital Signs (past 8 hours): - 09/11/21 12:28 Temperature 97.8 F Pulse Rate 81 Respiratory Rate 20 Blood Pressure 133/90 Pulse Oximetry 98 Oxygen Delivery Method Room Air Const General: cooperative and comfortable Nutritional Appearance: average body habitus Orientation: alert and oriented x3 HENMT Head: normal to inspection, normocephalic, atraumatic and scalp tenderness (No scalp or temporal artery tenderness) Eyes General: appearance normal, both eyes and all related structures Sclera: sclerae normal Neck Neck: trachea midline Chest Chest: normal inspection of the chest Resp Effort & Inspection: normal respiratory effort and able to speak in complete sentences Cardio Rate: regular rate Rhythm: regular rhythm GI Palpation: soft Skin General: elasticity normal and turgor normal Neuro Cognition: normal cognition Extrem General: full ROM Psych Appearance: grossly normal Objective Labs Labs: Laboratory Results - last 24 hr 09/10/21 12:17 SARS-CoV-2 (PCR) Negative Assessment & Plan Assessment & Plan narrative: right temporal artery biopsy as outpatient. continue steroids until seen by CONTRACTING MANAGER COVID-19 COVID-19 status: Negative Time Spent With Patient Critical Care time: I spent a total of [] minutes of critical care time on this patient's care today; this time is exclusive of procedural time.
--- NOTE | 2021-09-11 13:44 | SUR.OPER ---
Supine on padded OR bed, head on pillow, right arm padded and tucked at side, left arm on padded arm board <90 degrees abduction, legs uncrossed, safety belt at thigh, tape over blanket over lower legs .
[2021-09-11] MEDS: LIDOCAINE 1% W/EPI 20 ML INJ (13:49)
[2021-09-11] MEDS: BACITRACIN OINT 0.9 GM PCKT 1 APPLIC TOP (13:52)
[2021-09-11 14:06] VITALS: BP 143/82; PULSE 74; RESP 14; TEMP 36.8; O2SAT 93
[2021-09-11 14:11] VITALS: BP 138/87; PULSE 74; RESP 13; O2SAT 93
--- NOTE | 2021-09-11 14:12 | PM.OP.1 ---
Operative Date/Time/Diagnoses Date of procedure: 09/11/21 Time of procedure: 14:12 Pre-op diagnosis: Giant cell arteritis Post-op diagnosis: same Procedure & Clinicians Procedure: Right temporal artery biopsy Same procedure as scheduled: Yes Indications: Concern for giant cell arteritis Surgeon: Elda Church Click Yes if Unassisted: Yes Anesthesia Type: General and Local Operative Notes Findings: Normal appearing segment of temporal artery Closure Type: primary Specimen(s): other (Right temporal artery) Estimated Blood Loss (mL): 3 Procedure in detail: Preop diagnosis: Giant cell arteritis Postop diagnosis: Same Operative procedure: Biopsy of right temporal artery Findings: Normal-appearing temporal artery Procedure: Patient placed in a supine position. Prepped and draped in a sterile fashion. Incision was created just in front of her ear with 11 blade followed by electrocautery. With blunt dissection I was able to isolate the temporal artery for approximately a 4 mm stretch. Small vascular clips were placed on either end prior to transection. Hemostasis maintained with clips and electrocautery. Wound closed with a running/locking 4 0 Monocryl, Neosporin ointment placed over the wound. Patient was awakened, extubated, taken to recovery room in stable condition. Needle, instrument, sponge counts were correct. Specimen: Right temporal artery Blood loss: 3 mL Complications: none Post-operative Condition: stable
[2021-09-11 14:16] VITALS: BP 143/94; PULSE 92; RESP 96; O2SAT 24
--- NOTE | 2021-09-11 14:17 | SUR.PHASEI ---
Received to PACU after general anesthesia. Airway patent, self maintained. Report from Dr Cohn and ASTRID Duff.
[2021-09-11 14:21] VITALS: BP 143/94; PULSE 84; RESP 99; TEMP 36.1; O2SAT 19
[2021-09-11 14:41] VITALS: BP 152/91; PULSE 71; RESP 16; TEMP 36.7; O2SAT 98
--- NOTE | 2021-09-11 15:07 | SUR.PHASEII ---
d/c instructions discussed, pt voiced an understanding, left after voided in BR left in stable condition.
== END 2021-09-11 14:55 | disposition home or self-care (01) ==
PROVIDERS: PCP Physician Assistant; Referring Provider Surgery; Visit Provider Surgery
PROC: (CPT 37609; principal; 2021-09-11 13:15)
DX: R51.9 Headache, unspecified (principal); R79.82 Elevated C-reactive protein (CRP); E03.9 Hypothyroidism, unspecified; F17.210 Nicotine dependence, cigarettes, uncomplicated; I10 Essential (primary) hypertension; Z20.822 Contact with and (suspected) exposure to COVID-19
CPT/HCPCS: 37609; 87635; J1100; J2405; J2704; J3010

== ENCOUNTER 2022-07-31 10:49 | Emergency (ER) | payer OTHER, SELFPAY ==
[2021-09-04 14:28] VITALS: BMI 21.3
== END 2022-07-31 11:10 | disposition left against medical advice (07) ==
PROVIDERS: Emergency Provider Emergency Medicine; PCP Physician Assistant

== ENCOUNTER → 2022-08-01 11:01 | Outpatient (CLI) | payer OTHER, SELFPAY ==
[2021-09-04 14:28] VITALS: BMI 21.3
--- NOTE | 2022-08-01 11:05 | DI.RAD.S_ITS ---
PROCEDURE: XR THORACIC SPINE 2V INDICATIONS: chronic low back and thoracic spine pain TECHNIQUE: 3 views of the thoracic spine were acquired. COMPARISON: [facility], CR, XR THORACIC SPINE 3V, 09/08/2020, 7:45. FINDINGS: Bones: No fractures or dislocations. No suspicious bony lesions. 12 pairs of ribs are noted, and appear intact where visualized. Mild convex left thoracic scoliotic curvature. Degenerative disc space narrowing and hypertrophic facet joints noted in the lower cervical spine Soft tissues: No paravertebral stripe thickening. Atherosclerotic vascular calcification in the aortic arch IMPRESSION: Lower cervical spine degenerative disc disease and arthropathy Approved by: Kenny Bautista M.D. on 08/01/2022 at 13:50
--- NOTE | 2022-08-01 11:05 | DI.RAD.S_ITS ---
PROCEDURE: XR LUMBAR SPINE 2-3V INDICATIONS: chronic low back and thoracic spine pain TECHNIQUE: 3 views of the lumbar spine were acquired. COMPARISON: None. FINDINGS: Bones: 5 [id number] vertebrae are present. There is normal bony alignment. No vertebral body compression fractures. No suspicious bony lesions. Generalized decrease in osseous mineralization noted. Degenerative disc space narrowing and hypertrophic facet joints noted in the lower lumbar spine associated with grade 2 anterior spondylolisthesis at L4-5 Soft tissues: Overlying bowel gas pattern is normal. No suspicious soft tissue calcifications. IMPRESSION: 1. Degenerative disc disease and arthropathy in the lower lumbar spine associated with grade 2 anterior spondylolisthesis at L4-5 Approved by: Kenny Bautista M.D. on 08/01/2022 at 13:52
== END ==
PROVIDERS: PCP Physician Assistant; Referring Provider Physician Assistant; Visit Provider Physician Assistant
DX: M47.816 Spondylosis without myelopathy or radiculopathy, lumbar region (principal); M51.36 Other intervertebral disc degeneration, lumbar region; M43.16 Spondylolisthesis, lumbar region; M47.812 Spondylosis without myelopathy or radiculopathy, cervical region; M50.30 Other cervical disc degeneration, unspecified cervical region; M41.84 Other forms of scoliosis, thoracic region; M54.50 Low back pain, unspecified; M54.6 Pain in thoracic spine; G89.29 Other chronic pain
CPT/HCPCS: 72072; 72100

== ENCOUNTER → 2023-10-13 07:53 | Outpatient (CLI) | payer MEDICARE, SELFPAY ==
[2021-09-04 14:28] VITALS: BMI 21.3
[2023-10-13 08:25] LABS: Add Manual Diff / Slide Review NO; Basophils Absolute Auto 0 /uL (0-100); Basophils Percent Auto 0.7 % (0-2); Eosinophils Absolute Auto 0 /uL (0-450); Eosinophils Percent Auto 0.3 % (2-4); Hematocrit 39.4 % (36-46); Hemoglobin 13.6 g/dL (12.0-16.0); Lymphocytes Absolute Auto 1100 /uL (1100-4500); Lymphocytes Percent Auto 19.5 % (25-40); Mean Corpuscular HGB Conc 34.4 % (30-36); Mean Corpuscular Hemoglobin 36.2 PG (26-34); Mean Corpuscular Volume 105.1 fL (80-100); Monocytes Absolute Auto 500 /uL (0-900); Monocytes Percent Auto 9.7 % (3-14); Neutrophils Absolute Auto 4000 /uL (1500-7000); Neutrophils Percent Auto 69.8 % (50-75); Platelet Count 257 X10^3/uL (150-400); Red Blood Cell Count 3.75 X10^6/uL (4.0-5.2); Red Cell Distribution Width 13.1 % (11.6-14.8); White Blood Cell Count 5.7 X10^3/uL (4.5-11.0)
[2023-10-13 08:57] LABS: Alanine Aminotransferase 42 IU/L (<35); Albumin 4.4 g/dL (3.5-5.0); Albumin Globulin Ratio 1.4 (1.0-2.8); Alkaline Phosphatase 97 U/L (38-126); Aspartate Aminotransferase 55 IU/L (14-36); BUN Creatinine Ratio 17.4 (6-22); Bilirubin Total 0.6 mg/dL (0.2-1.3); Blood Urea Nitrogen 8 mg/dL (7-17); Carbon Dioxide 29 mmol/L (22-32); Chloride 99 mmol/L (98-107); Cholesterol 223 mg/dL (140-199); Estimated Glomerular Filt Rate > 60 mL/min (>60); Globulin 3.1 g/dL (1.7-4.1); Glucose 99 mg/dL (80-110); HDL Cholesterol 109 mg/dL (40-60); HEMOLYSIS < 15 (0-50); LDL Cholesterol Calculated 87 mg/dL (<100); Potassium 4.3 mmol/L (3.4-5.1); Sodium 134 mmol/L (137-145); Total Protein 7.5 g/dL (6.3-8.2); Triglycerides 136 mg/dL (35-150)
[2023-10-13 09:41] LABS: Vitamin B12 > 1000 pg/mL (239-931)
[2023-10-13 13:10] LABS: Thyroid Stimulating Hormone 0.044 uIU/mL (0.47-4.68)
[2023-10-15 05:54] LABS: RPR Screen Non Reactive (Non Reactive)
== END ==
PROVIDERS: PCP Internal Medicine; Referring Provider Internal Medicine; Visit Provider Internal Medicine
DX: I10 Essential (primary) hypertension (principal); E03.9 Hypothyroidism, unspecified; E78.2 Mixed hyperlipidemia
CPT/HCPCS: 36415; 80053; 80061; 82607; 84443; 85025; 86592

== ENCOUNTER → 2023-12-01 08:38 | Outpatient (CLI) | payer MEDICARE, SELFPAY ==
[2021-09-04 14:28] VITALS: BMI 21.3
--- NOTE | 2023-12-01 08:42 | DI.RAD.S_ITS ---
PROCEDURE: XR CERVICAL SPINE 4V OR 5V INDICATIONS: NECK PAIN TECHNIQUE: 5 views of the cervical spine acquired. COMPARISON: Cervical spine radiographs 02/21/2021. FINDINGS: Bones: No fractures or dislocations to the T1 level. There is straightening of the normal cervical lordosis. There is again seen severe multilevel cervical spondylosis. There is severe narrowing of the C4-C5, C5-C6, and C6-C7 disc spaces. Multilevel degenerative endplate sclerosis and spurring, not significantly changed since 02/21/2021. Diffuse facet arthropathy. Oblique images demonstrate severe left C5-C6 and C6-C7 bony foraminal stenoses. Soft tissues: No prevertebral soft tissue swelling. IMPRESSION: Multilevel cervical spondylosis and facet arthropathy, mildly progressed since 02/21/2021. Severe left C5-C6 and C6-C7 bony foraminal stenosis. Approved by: Haydee Fitzgerald M.D. on 12/01/2023 at 12:00
== END ==
PROVIDERS: PCP Internal Medicine; Referring Provider Physician Assistant; Visit Provider Physician Assistant
DX: M47.812 Spondylosis without myelopathy or radiculopathy, cervical region (principal); M48.02 Spinal stenosis, cervical region; M54.2 Cervicalgia
CPT/HCPCS: 72050

== ENCOUNTER → 2023-12-07 10:58 | Outpatient (CLI) | payer MEDICARE, SELFPAY ==
[2021-09-04 14:28] VITALS: BMI 21.3
--- NOTE | 2023-12-07 11:01 | DI.RAD.S_ITS ---
PROCEDURE: XR RIBS LT MIN 3V W CXR1V INDICATIONS: Left rib pain TECHNIQUE: 3 views of the ribs were acquired, along with a single view chest. COMPARISON: None. FINDINGS: Surgical changes and devices: None. Bones and chest wall: Possible nondisplaced fractures at the anterolateral aspect of the left 4th and 5th ribs. Lungs and pleura: No significant pneumothorax. Linear opacities at the lung base, more so on the left, possibly contusion, atelectasis, or early airspace disease. Mediastinum: Normal heart size IMPRESSION: Suspected nondisplaced anterolateral left 4th and 5th rib fractures. Lung base opacities are seen, greater on the left, mostly linear, likely atelectasis versus contusion or early airspace disease. Consider future imaging surveillance to assess for resolution. Dictated by: Constantin Smith M.D. on 12/07/2023 at 12:24 Approved by: Constantin Smith M.D. on 12/07/2023 at 12:27
== END ==
LOC: RAD 11:01
PROVIDERS: PCP Internal Medicine; Referring Provider Nurse Practitioner Family; Visit Provider Nurse Practitioner Family
DX: R07.81 Pleurodynia (principal)
CPT/HCPCS: 71101

== ENCOUNTER → 2023-12-13 09:10 | Outpatient (CLI) | payer MEDICARE, SELFPAY ==
[2021-09-04 14:28] VITALS: BMI 21.3
--- NOTE | 2023-12-13 | DI.MRI.S_ITS ---
PROCEDURE: MR HEAD/BRAIN WO CON INDICATIONS: SHORT-TERM MEMORY LOSS TECHNIQUE: Non-contrast axial T1 spin echo, axial T2 fast spin echo, sagittal and axial FLAIR, coronal T2 fast spin echo, axial gradient echo, axial diffusion and ADC through the brain. COMPARISON: [facility], , MR HEAD/BRAIN WO CON, 09/04/2021, 14:48. FINDINGS: Image quality: Excellent. CSF spaces: Ventricles appear symmetric in size and shape. Basal cisterns are patent. No extra-axial fluid collections. Brain: No intracranial bleeds or mass effects. Generalized brain parenchymal volume loss can be seen, without focal abnormal regional volume loss noted. There are periventricular and deep white matter chronic small vessel ischemic changes. Brainstem appears normal. Diffusion-weighted images show no acute infarct. No chronic ischemic insults. Normal intravascular flow voids are present. Skull and face: Calvarial bone marrow is normal in signal. Orbits are normal. Sinuses: Sinuses and mastoids are clear. IMPRESSION: Generalized brain parenchymal volume loss can be seen. Age-appropriate chronic small vessel ischemic change can be seen. No findings of acute or subacute infarction can be seen. No prior territorial infarct can be seen. Dictated by: Nadeem Gaffney M.D. on 12/15/2023 at 9:52 Approved by: Nadeem Gaffney M.D. on 12/15/2023 at 9:54
== END ==
LOC: MRI 09:11
PROVIDERS: PCP Internal Medicine; Referring Provider Internal Medicine; Visit Provider Internal Medicine
DX: R41.3 Other amnesia (principal)
CPT/HCPCS: 70551

== ENCOUNTER 2024-12-23 21:10 | Emergency (ER) | payer MEDICARE, SELFPAY ==
[2021-09-04 14:28] VITALS: BMI 21.3
[2024-12-23 21:13] VITALS: BP 132/91; PULSE 81; O2SAT 96
[2024-12-23 21:15] VITALS: PULSE 27
[2024-12-23 21:17] VITALS: BP 132/91; PULSE 82; RESP 17; TEMP 36.2; O2SAT 96; BMI 21.6
--- NOTE | 2024-12-23 21:24 | EKG_ITS ---
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
--- NOTE | 2024-12-23 21:24 | DI.RAD.S_ITS ---
PROCEDURE: XR CHEST 1V INDICATIONS: altered mental status TECHNIQUE: One view of the chest was acquired. COMPARISON: [facility], CR, XR CHEST 1V, 09/04/2021, 15:01. FINDINGS: Surgical changes and devices: None. Lungs and pleura: Lungs are clear. No pleural effusions or pneumothorax. Mediastinum: Mediastinal contours appear normal. Heart size is normal. Bones and chest wall: Diffuse osseous demineralization. Multiple, age-indeterminate, minimally displaced, bilateral rib fractures which were not identified on the available 09/04/2021 chest x-ray.. Overlying soft tissues appear unremarkable. IMPRESSION: 1. No acute cardiothoracic process. 2. Multiple, bilateral, age-indeterminate, minimally displaced rib fractures. Dictated by: Denny Skinner M.D. on 12/23/2024 at 22:48 Approved by: Denny Skinner M.D. on 12/23/2024 at 22:50
[2024-12-23 21:30] VITALS: BP 117/63
[2024-12-23 21:30] LABS: Add Manual Diff / Slide Review NO; Basophils Absolute Auto 100 /uL (0-100); Basophils Percent Auto 1.1 % (0-2); Eosinophils Absolute Auto 100 /uL (0-450); Eosinophils Percent Auto 1.9 % (2-4); Hematocrit 40.9 % (36-46); Lymphocytes Absolute Auto 2200 /uL (1100-4500); Lymphocytes Percent Auto 37.8 % (25-40); Mean Corpuscular HGB Conc 34.2 % (30-36); Mean Corpuscular Hemoglobin 33.9 PG (26-34); Monocytes Absolute Auto 500 /uL (0-900); Monocytes Percent Auto 7.7 % (3-14); Neutrophils Absolute Auto 3000 /uL (1500-7000); Neutrophils Percent Auto 51.5 % (50-75); Platelet Count 249 X10^3/uL (150-400); Red Blood Cell Count 4.13 X10^6/uL (4.0-5.2); Red Cell Distribution Width 13.9 % (11.6-14.8); White Blood Cell Count 5.9 X10^3/uL (4.5-11.0)
[2024-12-23 21:42] LABS: Alanine Aminotransferase 18 IU/L (<35); Albumin 4.4 g/dL (3.5-5.0); Albumin Globulin Ratio 1.4 (1.0-2.8); Alkaline Phosphatase 50 U/L (38-126); Aspartate Aminotransferase 30 IU/L (14-36); Bilirubin Total 0.1 mg/dL (0.2-1.3); Blood Urea Nitrogen 13 mg/dL (7-17); Calcium 9.2 mg/dL (8.4-10.2); Carbon Dioxide 31 mmol/L (22-32); Chloride 102 mmol/L (98-107); Estimated Glomerular Filt Rate > 60 mL/min (>60); Globulin 3.2 g/dL (1.7-4.1); Glucose 88 mg/dL (80-110); HEMOLYSIS 25 (0-50); Potassium 3.8 mmol/L (3.4-5.1); Sodium 139 mmol/L (137-145); Total Protein 7.6 g/dL (6.3-8.2)
[2024-12-23 21:55] LABS: Ammonia (NH3) < 9 umol/L (9-30)
[2024-12-23 21:57] LABS: Ur Creatinine Normal (Normal); Ur Specific Gravity Normal (Normal); Urine Amphetamines Negative (Negative); Urine Barbiturates Negative (Negative); Urine Benzodiazepines Negative (Negative); Urine Cocaine Negative (Negative); Urine MDMA Negative (Negative); Urine Methadone Negative (Negative); Urine Methamphetamines Negative (Negative); Urine Opiates Negative (Negative); Urine Oxycodone Negative (Negative); Urine Phencyclidine Negative (Negative); Urine THC Negative (Negative); Urine Tricyclic Antidepressant Negative (Negative); Urine pH Normal (Normal)
[2024-12-23 22:03] LABS: Bacteria Urine None Seen; Culture Indicated Urine Cult Not Indicated; RBC Urine 0-1/HPF (0-5/HPF); Squamous Epithelial Cell Urine 0-1 /HPF (0-5/HPF); Urine Volume 10mL (spun); WBC Urine None Seen (0-5/HPF)
--- NOTE | 2024-12-23 22:03 | PC.NURSE ---
Pt very active in bed, removing gown, fidgeting with BP cuff, IV, other wires. Tele monitoring deferred for now as pt won't tolerate stickers/wires.
--- NOTE | 2024-12-23 22:40 | PC.NURSE ---
Pt very concerned about her dogs at home, asked me to phone her friend, Myesha. Myesha (number in chart) stated that she is caring for pt's dog-- pt reassurred. Myesha also stated that she's noticed dramatic cognitive decline over the last year or so. States that pt is an alcoholic and she entered the neighbor's house this evening looking for alcohol. Myesha stated that she will be available late morning tomorrow to pick pt up from ER or assist as needed. Myesha informed pt's son, Brady Corado, that pt is in hospital. His phone number is [phone]
[2024-12-24 00:41] LABS: Ethanol (ETOH) 297 mg/dL
[2024-12-24 00:48] VITALS: BP 109/69
[2024-12-24 00:49] VITALS: PULSE 80; RESP 14; O2SAT 95
--- NOTE | 2024-12-24 00:50 | PC.NURSE ---
Pt resting quietly with eyes closed, resps even and not labored. No distress noted at this time. Pt rouses easily to verbal stimuli and answers questions willingly. Pulse ox and blood pressure monitors placed on patient with alarms on and audible. Call light within reach.
--- NOTE | 2024-12-24 01:26 | ED.AMS ---
HPI - Altered Mental Status General Chief Complaint: Altered Mental Status Stated Complaint: ALoC Time Seen by Provider: 12/24/24 00:00 Source: patient and EMS Mode of arrival: EMS History of Present Illness HPI narrative: 64-year-old female brought in by EMS for altered mental status, had been wandering to neighbor's house and seemed confused, per neighbor patient has history of alcohol use, might have been confused about which house she was entering, or maybe looking for more alcohol, EMS reported to nursing that neighbor feels patient has had cognitive decline in recent years. Patient denies alcohol use. No falls. No head or face injuries known. Denies trouble breathing. Denies pain in head, chest, abdomen. Complains of pain to left fourth toe, stated that she dropped an axe on it few days ago. Related Data Home Medications Medication Instructions Recorded Confirmed levothyroxine 150 mcg tablet 150 mcg PO DAILY 04/06/18 12/07/23 acyclovir 400 mg tablet 400 mg PO BID 06/21/19 12/07/23 pravastatin 80 mg tablet 80 mg PO DAILY 09/20/20 12/07/23 amlodipine 2.5 mg tablet 2.5 mg PO DAILY 11/10/20 12/07/23 Previous Rx's Medication Instructions Recorded hydrocodone 5 mg-acetaminophen 325 1 tab PO Q4-6H PRN pain #20 tabs 04/06/18 mg tablet Allergies Allergy/AdvReac Type Severity Reaction Status Date / Time hydroxyzine Allergy Severe Shakiness Verified 12/07/23 10:38 Penicillins [PENICILLINS] Allergy Mild RASH Verified 12/07/23 10:38 epinephrine [EPINEPHRINE] AdvReac Mild Verified 12/07/23 10:38 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 Alcohol on breath. HEAD: Atraumatic. Normocephalic. EYES: Pupils equal round and reactive. Extraocular motions intact. No scleral icterus. No injection or drainage. ENT: Nose without bleeding, purulent drainage. Throat without erythema, tonsillar hypertrophy or exudate. Airway patent. NECK: Trachea midline. Non tender CARDIOVASCULAR: Regular rate and rhythm without murmurs, gallops, or rubs. RESPIRATORY: Clear to auscultation. Breath sounds equal bilaterally. No wheezes, rales, or rhonchi. GASTROINTESTINAL: Abdomen soft, non-tender, nondistended. EXTREMITIES: Slight swelling left fourth toe, no laceration, no subungual hematoma. BACK: No tenderness midline or paraspinous NEURO: AOx3. Motor functions grossly nonfocal. SKIN: No rash or erythema of visible areas Initial Vital Signs Initial Vital Signs: Vital Signs Pulse Rate 81 12/23/24 21:13 Blood Pressure 132/91 H 12/23/24 21:13 Pulse Oximetry 96 12/23/24 21:13 Course Orders Ordered: Discontinued Medications Bacitracin (Bacitracin Oint 0.9 Gm Pckt) 1 applic TOP NOW ONE Stop: 12/24/24 05:38 Last Admin: 12/24/24 05:39 Dose: 1 applic Documented By: NOMI Vital Signs Vital signs: Vital Signs - 8 hr 12/24/24 09:52 Temperature 98.4 F Pulse Rate 95 H Respiratory Rate 22 Blood Pressure 144/87 H Pulse Oximetry 100 Oxygen Delivery Method Room Air MDM - Altered Mental Status Lab Data Attestation: I reviewed the patient's lab results. Lab results narrative: White blood cell count 5900, hemoglobin 14, platelets adequate. Electrolytes unremarkable, normal renal function, glucose 88. Liver functions normal. Ammonia level negative. Blood alcohol level 297 at 2118 hrs noted. UDS negative. Urinalysis negative. 12/23/24 21:18 12/23/24 21:18 Labs: Lab Results 12/23/24 12/23/24 12/23/24 Range/Units 21:18 21:30 21:40 WBC 5.9 (4.5-11.0) X10^3/uL RBC 4.13 (4.0-5.2) X10^6/uL Hgb 14.0 (12.0-16.0) g/dL Hct 40.9 (36-46) % MCV 99.0 (80-100) fL MCH 33.9 (26-34) PG MCHC 34.2 (30-36) % RDW 13.9 (11.6-14.8) % Plt Count 249 (150-400) X10^3/uL Neut % (Auto) 51.5 (50-75) % Lymph % (Auto) 37.8 (25-40) % [place] % (Auto) 7.7 (3-14) % Eos % (Auto) 1.9 L (2-4) % Baso % (Auto) 1.1 (0-2) % Neut # (Auto) 3000 (5551-9378) /uL Lymph # (Auto) 2200 (7587-9500) /uL [place] # (Auto) 500 (0-900) /uL Eos # (Auto) 100 (0-450) /uL Baso # (Auto) 100 (0-100) /uL Sodium 139 (137-145) mmol/L Potassium 3.8 (3.4-5.1) mmol/L Chloride 102 (98-107) mmol/L Carbon Dioxide 31 (22-32) mmol/L BUN 13 (7-17) mg/dL Creatinine 0.59 (0.52-1.04) mg/dL Estimated GFR > 60 (>60) mL/min BUN/Creatinine Ratio 22.0 (6-22) Glucose 88 (80-110) mg/dL Calcium 9.2 (8.4-10.2) mg/dL Total Bilirubin 0.1 L (0.2-1.3) mg/dL AST 30 (14-36) IU/L ALT 18 (<35) IU/L Alkaline Phosphatase 50 (38-126) U/L Ammonia < 9 L (9-30) umol/L Total Protein 7.6 (6.3-8.2) g/dL Albumin 4.4 (3.5-5.0) g/dL Globulin 3.2 (1.7-4.1) g/dL Albumin/Globulin Ratio 1.4 (1.0-2.8) Urine RBC 0-1/hpf (0-5/HPF) Urine WBC None seen (0-5/HPF) Ur Squamous Epith Cells 0-1 /hpf (0-5/HPF) Urine Bacteria None seen (None) Ur Culture Indicated? Cult not indicated Vol Urine Centrifuged 10ml (spun) U Opiates 300ng/mL cut (Negative) Ur Oxycodone Screen (Negative) Urine Methadone Screen (Negative) Ur Barbiturates Screen (Negative) U Tricyclic Antidepress (Negative) Ur Phencyclidine Scrn (Negative) Ur Amphetamines Screen (Negative) U Methamphetamines Scrn (Negative) Ur MDMA Scrn (Ecstasy) (Negative) U Benzodiazepines Scrn (Negative) Urine Cocaine Screen (Negative) U Marijuana (THC) Screen (Negative) Urine pH (Normal) Urine Specific [place] (Normal) Ethyl Alcohol 297 H ( - 10) mg/dL Ur Creatinine (Normal) 12/23/24 Range/Units 21:43 WBC (4.5-11.0) X10^3/uL RBC (4.0-5.2) X10^6/uL Hgb (12.0-16.0) g/dL Hct (36-46) % MCV (80-100) fL MCH (26-34) PG MCHC (30-36) % RDW (11.6-14.8) % Plt Count (150-400) X10^3/uL Neut % (Auto) (50-75) % Lymph % (Auto) (25-40) % [place] % (Auto) (3-14) % Eos % (Auto) (2-4) % Baso % (Auto) (0-2) % Neut # (Auto) (7286-8077) /uL Lymph # (Auto) (7840-9333) /uL [place] # (Auto) (0-900) /uL Eos # (Auto) (0-450) /uL Baso # (Auto) (0-100) /uL Sodium (137-145) mmol/L Potassium (3.4-5.1) mmol/L Chloride (98-107) mmol/L Carbon Dioxide (22-32) mmol/L BUN (7-17) mg/dL Creatinine (0.52-1.04) mg/dL Estimated GFR (>60) mL/min BUN/Creatinine Ratio (6-22) Glucose (80-110) mg/dL Calcium (8.4-10.2) mg/dL Total Bilirubin (0.2-1.3) mg/dL AST (14-36) IU/L ALT (<35) IU/L Alkaline Phosphatase (38-126) U/L Ammonia (9-30) umol/L Total Protein (6.3-8.2) g/dL Albumin (3.5-5.0) g/dL Globulin (1.7-4.1) g/dL Albumin/Globulin Ratio (1.0-2.8) Urine RBC (0-5/HPF) Urine WBC (0-5/HPF) Ur Squamous Epith Cells (0-5/HPF) Urine Bacteria (None) Ur Culture Indicated? Vol Urine Centrifuged U Opiates 300ng/mL cut Negative (Negative) Ur Oxycodone Screen Negative (Negative) Urine Methadone Screen Negative (Negative) Ur Barbiturates Screen Negative (Negative) U Tricyclic Antidepress Negative (Negative) Ur Phencyclidine Scrn Negative (Negative) Ur Amphetamines Screen Negative (Negative) U Methamphetamines Scrn Negative (Negative) Ur MDMA Scrn (Ecstasy) Negative (Negative) U Benzodiazepines Scrn Negative (Negative) Urine Cocaine Screen Negative (Negative) U Marijuana (THC) Screen Negative (Negative) Urine pH Normal (Normal) Urine Specific [place] Normal (Normal) Ethyl Alcohol ( - 10) mg/dL Ur Creatinine Normal (Normal) Urine Dip Bedside Urine Glucose Negative Bedside Urine Bilirubin - Negative Bedside Urine Ketone - Negative Urine Specific [place] 1.01 Bedside Urine Occult Blood +/- Bedside Urine pH 6 Bedside Urine Protein - Negative Bedside Urine Urobilinogen - Negative Bedside Urine Nitrite - Negative Bedside Urine Leukocytes - Negative Esterase Imaging Data Chest x-ray: Radiologist's Impression: [address] [address] XRay Report Signed Patient: Tressa Carrera MR#: [id number] : 1960 Acct:[id number] Age/Sex: 64 / F Date of Service: 12/23/24 Loc: ED Accession Number: [id number] Procedure: XR chest 1V Ordering Provider: Ezequiel Ennis MD PROCEDURE: XR CHEST 1V INDICATIONS: altered mental status TECHNIQUE: One view of the chest was acquired. COMPARISON: [facility], , XR CHEST 1V, 09/04/2021, 15:01. FINDINGS: Surgical changes and devices: None. Lungs and pleura: Lungs are clear. No pleural effusions or pneumothorax. Mediastinum: Mediastinal contours appear normal. Heart size is normal. Bones and chest wall: Diffuse osseous demineralization. Multiple, age-indeterminate, minimally displaced, bilateral rib fractures which were not identified on the available 09/04/2021 chest x-ray.. Overlying soft tissues appear unremarkable. IMPRESSION: 1. No acute cardiothoracic process. 2. Multiple, bilateral, age-indeterminate, minimally displaced rib fractures. Dictated by: Denny Skinner M.D. on 12/23/2024 at 22:48 Approved by: Denny Skinner M.D. on 12/23/2024 at 22:50 ECG Data Attestation: I personally reviewed and interpreted this ECG as follows: Interpretation: Normal sinus rhythm with rate of 73, no obvious ST segment elevation or depression changes. WI 134, QRS 80, QTC 451. MDM Narrative Medical decision making narrative: 64-year-old female with history of alcohol abuse per neighbors, seemed confused and wandering at neighbor's house, might have thought she went into her own house, or perhaps looking for more alcohol, confusion with alcohol on breath, no obvious head/face trauma. Screening labs pending. Elevated ethanol level 297 noted @2118. Chest x-ray showed age-indeterminate rib fractures. See radiology report. Left foot series without fracture toe, see tele radiology report. 0600, Wants to go home, clear speech, no s/sx alcohol withdrawal, home with friend who will pick her after friends' morning doctor appointment later this morning Discharge Plan Departure Patient Disposition: Home Clinical Impression: Alcohol intoxication, Contusion of toe Activity Restrictions/Additional Instructions: Confusion last night reported by neighbor, blood alcohol level elevated, observed overnight in the emergency department. Toe swelling from recent trauma, x-ray showed no fracture or dislocation. Follow up with your regular doctor on [facility]. Prescriptions: No Action levothyroxine 150 mcg tablet 150 mcg PO DAILY hydrocodone-acetaminophen 5-325 mg tablet 1 tab PO Q4-6H PRN (Reason: pain) Qty: 20 0RF Rx Instructions: pt takes 1/2 tab tid acyclovir 400 mg tablet 400 mg PO BID pravastatin 80 mg tablet 80 mg PO DAILY amlodipine 2.5 mg tablet 2.5 mg PO DAILY Referrals: Rm Salcedo MD [Primary Care Provider] - Stand Alone Forms: Patient Portal/API/Survey
--- NOTE | 2024-12-24 01:32 | PC.NURSE ---
Dr. Ennis in to examine patient
--- NOTE | 2024-12-24 01:44 | PC.NURSE ---
Pt ambulatory to restroom with 1 person assist, mildly unsteady gait.
--- NOTE | 2024-12-24 02:29 | PC.NURSE ---
Pt resting quietly with eyes closed, resps even and not labored. No distress noted at this time. Pt remains connected to blood pressure and pulse ox monitors with alarms on and audible. Call light within reach. Exam room remains open for frequent observation by staff.
[2024-12-24 02:31] VITALS: BP 104/76; PULSE 79; RESP 14; O2SAT 93
--- NOTE | 2024-12-24 04:29 | PC.NURSE ---
Pt States has wound on left 4th toe causing her pain. Stated she would like the provider to look at it. provider at bedside.
--- NOTE | 2024-12-24 04:37 | DI.RAD.S_ITS ---
PROCEDURE: XR FOOT LT MIN 3V INDICATIONS: 4th toe pain/swelling TECHNIQUE: 3 views of the foot were acquired. COMPARISON: None. FINDINGS: Bones: No acute fractures or dislocations. No suspicious bony lesions. Plantar calcaneal enthesophyte is present. Soft tissues: Mild soft tissue swelling in the 4th toe. IMPRESSION: No acute osseous abnormality. If there is continued clinical concern or persistent symptoms, repeat radiographs or cross-sectional imaging (e.g. CT, MRI) may be helpful for further evaluation. There is no significant discrepancy when compared to the overnight preliminary report. Approved by: Chi Tinoco M.D. on 12/24/2024 at 8:11
[2024-12-24] MEDS: BACITRACIN OINT 0.9 GM PCKT 1 APPLIC TOP (05:39)
[2024-12-24 06:03] VITALS: BP 133/78; PULSE 83; RESP 18; O2SAT 98
[2024-12-24 09:52] VITALS: BP 144/87; PULSE 95; RESP 22; TEMP 36.9; O2SAT 100
== END 2024-12-24 09:55 | disposition home or self-care (01) ==
PROVIDERS: Emergency Provider Emergency Medicine; PCP Internal Medicine
DX: F10.129 Alcohol abuse with intoxication, unspecified (principal); Y90.8 Blood alcohol level of 240 mg/100 ml or more; S90.122A Contusion of left lesser toe(s) without damage to nail, initial encounter; X58.XXXA Exposure to other specified factors, initial encounter; R41.0 Disorientation, unspecified
CPT/HCPCS: 36415; 71045; 73630; 80053; 80305; 80320; 81003; 81015; 82140; 85025; 93005; 93010; 99284